=== PATIENT | male | born 1930 | race African-American/Black ===

== ENCOUNTER 2017-01-14 16:28 | Inpatient (IN) | payer MEDICARE, OTHER ==
[~2017-01-14] VITALS: Ht 160 cm; Wt 69.5 kg
--- NOTE | 2017-01-14 16:58 | ED.ADGEN ---
Adult General Chief Complaint Chief Complaint: FEVER HPI HPI Patient is a 86 year old man, history of a hemicolectomy an ostomy in place, urostomy, hypertension, who presents the emergency department with a report of fever and generalized weakness. Per report of family at bedside, patient was discharged from [facility] on Sunday after a recent hospitalization for "infection". Patient reportedly was expressing a urinary tract infection, and some other type of infection. He is not currently on antibiotics so is treated with antibiotics during his hospital stay. His primary care provider is Dr. Castellano. Patient was evaluated by physical therapy at home today, when they arrived and noted the patient had a fever of 100.4 orally, and was tachycardic. They contacted the patient's primary care provider, and the patient was instructed to come to the emergency department for evaluation. Per report of patient's family, patient has had decreased appetite today, but no vomiting. Patient is denying any nausea, any diarrhea, any focal weakness, numbness, tingling, headache, shortness of breath, cough. Denies any abdominal pain, denies any rashes or swelling extremities. No recent sick contacts or exposures. Patient has been compliant with his medications. Temperature in the emergency department is 99.3 orally, patient has not received any medications prior to arrival in the ED for fever. He denies any complaints. Review of Systems Review of Systems Constitutional: Fever, no chills. Eyes: Denies change in visual acuity. [] HENT: Denies nasal congestion or sore throat. [] Respiratory: Chronic nonproductive cough. [] Cardiovascular: Denies chest pain or edema. [] GI: Denies abdominal pain, nausea, vomiting, bloody stools or diarrhea. [] : Denies dysuria. [] Musculoskeletal: Denies back pain or joint pain. [] Integument: Denies rash. [] Neurologic: Denies headache, focal weakness or sensory changes. [] Endocrine: Denies polyuria or polydipsia. [] Lymphatic: Denies swollen glands. [] Psychiatric: Denies depression or anxiety. [] Current Medications Current Medications Current Medications Medications (Trade) Dose Ordered Sig/Ash Start Time Stop Time Status Last Admin Dose Admin Acetaminophen (Tylenol) 1,000 mg 1X ONCE 01/14/17 17:00 01/14/17 17:01 DC 01/14/17 17:21 1,000 MG Sodium Chloride 1,000 ml @ 100 mls/hr Q10H 01/14/17 17:00 01/15/17 02:59 Allergies Allergies Allergies Coded Allergies Type Severity Reaction Last Updated Verified No Known Drug Allergies 01/14/17 No Physical Exam Physical Exam Constitutional: Well developed, well nourished, no acute distress, non-toxic appearance. [] HENT: Normocephalic, atraumatic, bilateral external ears normal, oropharynx moist, no oral exudates, nose normal. [] Eyes: PERRLA, EOMI, conjunctiva normal, no discharge. [] Neck: Normal range of motion, no tenderness, supple, no stridor. [] Cardiovascular:Heart rate regular rhythm, no murmur, S1, S2, no rubs or gallops. Soft heart sounds. Mildly tachycardic. [] Lungs & Thorax: Bilateral breath sounds clear to auscultation, no wheezing, rhonchi, rales. No chest or crepitus or tenderness. [] Abdomen: Bowel sounds normal, soft, no tenderness, patient with ostomy in place , with moderate amount of brown liquid stool, urostomy in place, with yellow urine, no hematuria. No masses, no pulsatile masses. [] Skin: Warm, dry, no erythema, no rash. [] Back: No tenderness, no CVA tenderness. [] Extremities: No tenderness, no cyanosis, no clubbing, ROM intact, no edema. Negative Homans sign. [] Neurologic: Alert and oriented X 3, normal motor function, normal sensory function, no focal deficits noted. [] Psychologic: Affect normal, judgement normal, mood normal. [] Current Patient Data Vital Signs Vital Signs Date Time Temp Pulse Resp B/P (MAP) Pulse Ox O2 Delivery O2 Flow Rate FiO2 01/14/17 17:30 94 20 158/76 (103) 99 Room Air 01/14/17 16:49 99.3 99.3 Lab Values Laboratory Tests Test 01/14/17 17:03 01/14/17 17:22 White Blood Count 12.5 x10^3/uL (4.0-11.0) H Red Blood Count 2.80 x10^6/uL (4.30-5.70) L Hemoglobin 8.7 g/dL (13.0-17.5) L Hematocrit 27.0 % (39.0-53.0) L Mean Corpuscular Volume 96 fL (79-100) Mean Corpuscular Hemoglobin 31 pg (25-35) Mean Corpuscular Hemoglobin Concent 32 g/dL (31-37) Red Cell Distribution Width 15.9 % (11.5-14.5) H Platelet Count 349 x10^3/uL (140-400) Neutrophils (%) (Auto) 66 % (31-73) Lymphocytes (%) (Auto) 11 % (24-48) L Monocytes (%) (Auto) 22 % (0-9) H Eosinophils (%) (Auto) 1 % (0-3) Basophils (%) (Auto) 1 % (0-3) Neutrophils # (Auto) 8.3 x10^3uL (1.8-7.7) H Lymphocytes # (Auto) 1.4 x10^3/uL (1.0-4.8) Monocytes # (Auto) 2.7 x10^3/uL (0.0-1.1) H Eosinophils # (Auto) 0.1 x10^3/uL (0.0-0.7) Basophils # (Auto) 0.1 x10^3/uL (0.0-0.2) Segmented Neutrophils % 77 % (35-66) H Lymphocytes % 9 % (24-48) L Monocytes % 14 % (0-10) H Platelet Estimate Adequate (ADEQUATE) Prothrombin Time 14.6 SEC (11.7-14.0) H Prothrombin Time INR 1.2 (0.8-1.1) H PTT 42 SEC (24-38) H Sodium Level 138 mmol/L (136-145) Potassium Level 4.1 mmol/L (3.5-5.1) Chloride Level 100 mmol/L (98-107) Carbon Dioxide Level 28 mmol/L (21-32) Anion Gap 10 (6-14) Blood Urea Nitrogen 30 mg/dL (8-26) H Creatinine 1.6 mg/dL (0.7-1.3) H Estimated GFR (Cockcroft-Gault) 41.1 BUN/Creatinine Ratio 19 (6-20) Glucose Level 305 mg/dL (70-99) H Lactic Acid Level 2.7 mmol/L (0.4-2.0) H Calcium Level 9.6 mg/dL (8.5-10.1) Total Bilirubin 0.3 mg/dL (0.2-1.0) Aspartate Amino Transferase (AST) 22 U/L (15-37) Alanine Aminotransferase (ALT) 27 U/L (16-63) Alkaline Phosphatase 147 U/L (46-116) H Troponin I Quantitative < 0.017 ng/mL (0.000-0.055) KV-Wzv-K-Type Natriuretic Peptide 1121 pg/mL (0-449) H Total Protein 8.1 g/dL (6.4-8.2) Albumin 2.7 g/dL (3.4-5.0) L Albumin/Globulin Ratio 0.5 (1.0-1.7) L Urine Collection Type Unknown Urine Color Yellow Urine Clarity Cloudy Urine pH 6.0 Urine Specific [place] 1.010 Urine Protein 30 mg/dL (NEG-TRACE) Urine Glucose (UA) Negative mg/dL (NEG) Urine Ketones (Stick) Negative mg/dL (NEG) Urine Blood Small (NEG) Urine Nitrite Positive (NEG) Urine Bilirubin Negative (NEG) Urine Urobilinogen Dipstick 0.2 mg/dL (0.2 mg/dL) Urine Leukocyte Esterase Large (NEG) Urine RBC 6-10 /HPF (0-2) Urine WBC Tntc /HPF (0-4) Urine Squamous Epithelial Cells Few /LPF Urine Bacteria Many /HPF (0-FEW) Urine Hyaline Casts Few /HPF Urine Mucus Slight /LPF Laboratory Tests 01/14/17 17:03 Laboratory Tests 01/14/17 17:03 EKG EKG EC: Sinus tachycardia, heart rate 105 beats minute, upright axis, QTC of 445, [place] 142, QRS is 72, mild baseline artifact noted, contour normality is noted in the anterior leads, but no ST elevations or depressions, abnormal ECG, does not meet STEMI criteria. As interpreted by me. [] Radiology/Procedures Radiology/Procedures Chest x-ray: One view: Normal cardiopulmonary silhouette, calcification of the aorta, no infiltrates, no effusions, no soft tissue or bony abnormalities identified. As interpreted by me. [] Course & Med Decision Making Course & Med Decision Making Pertinent Labs and Imaging studies reviewed. (See chart for details) Patient denying complaints in the emergency department, noted be tachycardic, in the low 100s, blood pressure is within normal limits, oxygen saturation is in the mid upper 90s rest her rate is 18-20 and unlabored. Oral temperature is 99.3 as stated. Laboratory studies obtained, reveal a lactic acidosis at 2.7, with a leukocytosis, 12.5, with a left shift, urinalysis is positive for nitrates, too numerous to count WBCs, many bacteria. This was a specimen taken from the patient's urostomy. As patient has no abdominal pain, or other complaints, negative chest x-ray, we will treat with IV fluids, and broad- spectrum antibiotics to cover patient's urine, Zosyn and vancomycin initiated in the emergency department. Patient continues to rest comfortably. Findings as above discussed with Dr. Whaley, the patient's primary care provider, patient accepted to his service as a full admission to the medical telemetry floor for continued close monitoring and medical treatment, bridge orders entered per discussion. Dragon Disclaimer Dragon Disclaimer This electronic medical record was generated, in whole or in part, using a voice recognition dictation system. Departure Impression: Primary Impression: Pyelonephritis Disposition: ADMITTED INPATIENT Admitting Physician: Javier Whaley Condition: IMPROVED SANIA BARNETT DO Jan 14, 2017 16:58
[2017-01-14] MEDS ORDERED: ACETAMINOPHEN 500 MG TABLET PO ONE (17:00)
[2017-01-14 17:11] LABS: BASO # 0.1 x10^3/uL (0.0-0.2); BASO % 1 % (0-3); EOS % 1 % (0-3); HEMOGLOBIN 8.7 g/dL (13.0-17.5); LYMPH # 1.4 x10^3/uL (1.0-4.8); LYMPH % 11 % (24-48); MEAN CORPUSCULAR HEMOGLOBIN 31 pg (25-35); MEAN CORPUSCULAR HGB CONC 32 g/dL (31-37); MEAN CORPUSCULAR VOLUME 96 fL (79-100); MONO % 22 % (0-9); NEUT % 66 % (31-73); PLATELET COUNT 349 x10^3/uL (140-400); RED CELL DISTRIBUTION WIDTH 15.9 % (11.5-14.5); WHITE BLOOD COUNT 12.5 x10^3/uL (4.0-11.0)
[2017-01-14 17:20] LABS: INR 1.2 (0.8-1.1); PROTHROMBIN TIME PATIENT 14.6 SEC (11.7-14.0)
[2017-01-14] MEDS: IV NORMAL SALINE 1000ML BAG 1,000 ML IV SCH ×2 (17:20→20:08)
[2017-01-14 17:23] LABS: CALCIUM 9.6 mg/dL (8.5-10.1); CREATININE 1.6 mg/dL (0.7-1.3); GFR 41.1; POTASSIUM 4.1 mmol/L (3.5-5.1)
[2017-01-14 17:29] LABS: BILIRUBIN,URINE NEGATIVE (NEG); GLUCOSE,URINE NEGATIVE (NEG); NITRITE,URINE POSITIVE (NEG); PROTEIN,URINE 30 mg/dL (NEG-TRACE); UROBILINOGEN,URINE 0.2 mg/dL (0.2 mg/dL)
[2017-01-14 17:35] LABS: BACTERIA,URINE MANY /HPF (0-FEW); SQUAMOUS EPITHELIAL CELL,UR FEW /LPF; WBC,URINE TNTC /HPF (0-4)
[2017-01-14 17:38] LABS: ALBUMIN 2.7 g/dL (3.4-5.0); ALBUMIN/GLOBULIN RATIO 0.5 (1.0-1.7); TOTAL BILIRUBIN 0.3 mg/dL (0.2-1.0); TOTAL PROTEIN 8.1 g/dL (6.4-8.2)
[2017-01-14 17:43] LABS: PLT ESTIMATE ADEQUATE (ADEQUATE)
[2017-01-14] MEDS ORDERED: PIP/TAZO PER PHARMACY MC PRN (17:45)
[2017-01-14] MEDS ORDERED: DORZ10DR3 EACHEYE (17:48)
[2017-01-14] MEDS ORDERED: OMEP20CA9 PO (17:48)
[2017-01-14] MEDS ORDERED: MULT1TAB52 PO (17:48)
[2017-01-14] MEDS ORDERED: DILT120C80 PO (17:48)
[2017-01-14] MEDS ORDERED: METF500T4 PO (17:48)
[2017-01-14] MEDS ORDERED: CRESTOR10 MG PO (17:48)
[2017-01-14] MEDS ORDERED: BRIM5DRO3 EACHEYE (17:48)
[2017-01-14] MEDS ORDERED: CHOL10003 PO (17:48)
[2017-01-14] MEDS ORDERED: HYDR25TA9 PO (17:48)
[2017-01-14] MEDS ORDERED: GLIM2TAB2 PO (17:48)
[2017-01-14] MEDS ORDERED: THIA100T43 PO (17:48)
[2017-01-14] MEDS ORDERED: PARO10TA57 PO (17:48)
[2017-01-14] MEDS ORDERED: LATA2.5D3 OP (17:48)
[2017-01-14] MEDS ORDERED: LISI-334 PO (17:48)
[2017-01-14] MEDS ORDERED: IV NORMAL SALINE 1000ML BAG 1,000 ML IV ONE (18:00)
[2017-01-14] MEDS: VANCOMYCIN 1.5 GM in IV NORMAL SALINE 500ML BAG 500 ML IV ONE ×2 (18:00→20:09)
[2017-01-14] MEDS ORDERED: PIPERACILLIN/TAZOBACTAM 3.375 GM in IV NORMAL SALINE 50ML 50 ML IV ONE (18:00)
[2017-01-14] MEDS ORDERED: ACETAMINOPHEN 325 MG TABLET. PO PRN (18:15)
[2017-01-14] MEDS ORDERED: ONDANSETRON PF 4 MG/2 ML VIAL. IV PRN (18:15)
[2017-01-14] MEDS ORDERED: DEXTROSE 50% 25 GM / 50ML DISP.SYRIN. IV PRN (18:15)
[2017-01-14 19:42] VITALS: BP 155/78
[2017-01-14] MEDS: VANCOMYCIN PER PHARMACY MC PRN (20:13)
[2017-01-14 22:49] VITALS: BP 148/70
[2017-01-15] MEDS: PIPERACILLIN/TAZOBACTAM 2.25 GM in IV NORMAL SALINE 50ML 50 ML IV SCH ×4 (00:20→17:24)
[2017-01-15 03:06] VITALS: BP 178/77
[2017-01-15 04:33] LABS: BASO # 0.1 x10^3/uL (0.0-0.2); BASO % 1 % (0-3); EOS % 2 % (0-3); HEMATOCRIT 24.9 % (39.0-53.0); HEMOGLOBIN 8.1 g/dL (13.0-17.5); LYMPH # 1.4 x10^3/uL (1.0-4.8); LYMPH % 13 % (24-48); MEAN CORPUSCULAR HEMOGLOBIN 31 pg (25-35); MEAN CORPUSCULAR HGB CONC 33 g/dL (31-37); MEAN CORPUSCULAR VOLUME 96 fL (79-100); MONO % 23 % (0-9); NEUT % 61 % (31-73); PLATELET COUNT 282 x10^3/uL (140-400); RED CELL DISTRIBUTION WIDTH 15.6 % (11.5-14.5); WHITE BLOOD COUNT 10.3 x10^3/uL (4.0-11.0)
[2017-01-15 04:45] LABS: CALCIUM 8.7 mg/dL (8.5-10.1); CREATININE 1.2 mg/dL (0.7-1.3); GFR 69.3; POTASSIUM 3.6 mmol/L (3.5-5.1)
--- NOTE | 2017-01-15 05:07 | ACF ---
Admission Forms Criteria PYELONEPHRITIS, ACUTE Clinical Indications for Admission to Inpatient Care ([place]/check or initial the applicable condition/criteria) Admission is indicated for 1 or more of the following 1)(2)(3)(4)(5)(6) [ ]I. Failure of outpatient treatment [ ]II. beyond 24 weeks' gestation(8)(9)(10) [ ]III. Immunocompromised state (eg, AIDS, sickle cell disease, chronic systemic corticosteroid use) [ ]. Known renal or urologic abnormalities (eg, structural abnormalities, renal calculi, urinary stent, previous urologic surgery) [ ]V. Condition that requires drainage procedure, including 1 or more of the following: [ ]a) Urinary obstruction(11) [ ]b) Renal or perinephric abscess [ ]c) Emphysematous pyelonephritis(12) [ ]d) Pyelitis [ ]e) Pyonephrosis [X]Vl. Inpatient admission required[A] rather than observation care (see Pyelonephritis, Acute: Observation Care guideline as appropriate) because of 1 or more of the following(13 )(14)(15): [ ]a) Hemodynamic instability(16) [ ]b) Altered mental status that is severe or persistent [X]c) High fever or infection requiring inpatient admission as indicated by 1 or more of the following(17)(18): [X]1) Documented bacteremia [ ]2) Temperature greater than 104.9 degrees F (40.5 degrees C) (oral) [ ]3) Temperature greater than 103.1 degrees F (39.5 degrees C) (oral) or rectal temperature less than 95 degrees F (35 degrees C) (eg, thought to be due to infection) that does not respond to all emergency treatment measures(19)(20 [ ]d) Acute renal failure [ ]e) Need for IV hydration support (eg, inability to maintain oral hydration ) despite outpatient and observation care treatment [ ]f) Other condition, treatment, or monitoring requiring inpatient admission The original [facility] [employer] content created by Alex Kaiser has been revised. The portions of the content which have been revised are identified through the use of italic text, and Alex Kaiser has neither reviewed nor approved the modified material. All other unmodified content is copyright [employer] include [email or web address] [email or web address]. Please see references footnote in the original [facility] edition 2015 Admission Criteria Met?: Yes DARIEN BLACKWOOD Jan 15, 2017 05:07
--- NOTE | 2017-01-15 06:29 | EKG ---
[facility] [address] [place] [address] Test Date: 2017-01-14 Test Time: 16:41:24 Pat Name: TA MEDINA Department: Room: Gender: M [place]: : 1930 Requested By: SANIA BARNETT Order Number: [id number] Reading MD: Measurements Intervals [place] Rate: 105 P: 39 RI: 142 QRS: 38 QRSD: 72 T: 24 QT: 334 QTc: 445 Interpretive Statements SINUS TACHYCARDIA QRS(T) CONTOUR ABNORMALITY CONSIDER ANTEROSEPTAL MYOCARDIAL DAMAGE ST & T ABNORMALITY, CONSIDER ANTERIOR ISCHEMIA OR LEFT VENTRICULAR STRAIN ABNORMAL ECG RI6.01 No previous ECG available for comparison
[2017-01-15 07:00] VITALS: BP 140/74
--- NOTE | 2017-01-15 07:36 | RAD ---
Indication: Weakness. Time of exam 1710 hours. Correlation is made with prior study from 04/03/2011. FINDINGS: The heart size is normal. The lungs are clear. No pleural effusion or pneumothorax is identified. The pulmonary vascularity is normal. IMPRESSION: No acute abnormality detected.
[2017-01-15] MEDS: INSULIN ASPART 300 UNITS/3 ML INSULN.PEN SQ SCH ×3 (09:44→17:28)
[2017-01-15 11:00] VITALS: BP 154/74
[2017-01-15] MEDS: THIAMINE 100 MG TABLET. PO SCH (13:21)
[2017-01-15] MEDS: MULTIVITAMIN with MINERAL TABLET. PO SCH (13:22)
[2017-01-15] MEDS: GLIMEPIRIDE 2 MG TABLET. PO SCH (13:22)
[2017-01-15] MEDS: ENOXAPARIN 40 MG/0.4 ML SYRINGE. SQ SCH (13:23)
[2017-01-15] MEDS: PARoxetine 10 MG TABLET PO SCH (13:23)
[2017-01-15] MEDS: LISINOPRIL 20 MG TABLET PO SCH (13:23)
[2017-01-15] MEDS: hydroCHLOROthiazide 25 MG TABLET PO SCH (13:23)
[2017-01-15] MEDS: CHOLECALCIFEROL (VITAMIN D3) 1,000 UNIT TABLET PO SCH (13:24)
[2017-01-15] MEDS: VANCOMYCIN PER PHARMACY MC PRN (14:56)
[2017-01-15 15:00] VITALS: BP 153/69
[2017-01-15] MEDS: PANTOPRAZOLE 40 MG TABLET.DR. PO SCH (17:23)
[2017-01-15] MEDS: metFORMIN 500 MG TABLET PO SCH (17:24)
[2017-01-15 19:00] VITALS: BP 143/63
[2017-01-15] MEDS ORDERED: VANCOMYCIN 1 GM in IV NORMAL SALINE 250ML 250 ML IV SCH (20:00)
[2017-01-15] MEDS: LATANOPROST 0.005% OPHTH SOLUTION 2.5ML BOTTLE. OU SCH (20:28)
[2017-01-15] MEDS: BRIMONIDINE 0.2% OPHTH SOLUTION 5ML BOTTLE. OU SCH (20:28)
[2017-01-15] MEDS: DORZOLAMIDE 2% OPHTH SOLUTION 10ML BOTTLE. OU SCH (20:28)
[2017-01-15] MEDS: ATORVASTATIN CALCIUM 40 MG TABLET. PO SCH (20:29)
[2017-01-15 23:00] VITALS: BP 124/62
[2017-01-16] MEDS: PIPERACILLIN/TAZOBACTAM 2.25 GM in IV NORMAL SALINE 50ML 50 ML IV SCH ×5 (00:26→23:59)
[2017-01-16 03:00] VITALS: BP 151/67
--- NOTE | 2017-01-16 05:52 | HP ---
ADMIT DATE: 01/14/2017 CHIEF COMPLAINT: Fever and weakness. HISTORY OF PRESENT ILLNESS AND HOSPITAL COURSE: This patient is an 86-year-old -[place] male who is recently transferred from shelter to home after extended hospital stay for dehydration, weight loss and sepsis. He underwent shelter/rehab care and apparently was discharged home in the care of his daughter, who commuted from [place] to care for him and live with him. The patient states that he is living alone and this cannot be verified at this time. He was directed to go to the Emergency Room when home health was evaluating the patient and discovered that the patient was having a fever of 100.3, has become increasingly weak and showed evidence of tachycardia and dehydration again. This was less than a week after discharge from shelter. The patient came to the Emergency Room and was found to have a slightly elevated white count with positive nitrites in his urine and large leukocytes as well as very high blood sugar of 300 and evidence of acute on chronic renal failure. Due to the constellation of symptoms, he was admitted for IV fluids, IV antibiotics, Infectious Disease consultation and supportive care. PAST MEDICAL HISTORY: Significant for: 1. Recent hospitalization for significant weight loss, dehydration and UTI with sepsis. 2. 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 3. 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 4. Type 2 diabetes. 5. Hypertension. 6. Chronic kidney disease stage 3. 7. Hyperlipidemia. 8. Glaucoma. PAST SURGICAL HISTORY: Significant for cystoscopy, retrograde pyelogram, low back surgery, partial colectomy, ileal conduit, prostatectomy. FAMILY HISTORY: His mother with complications of stroke. Father with complications of cancer. SOCIAL HISTORY: The patient has never smoked. He was apparently supposed to live with daughter, but this is not verified at this time because the patient has failed living at home alone at this time, the patient was ____ in 08/2016. ALLERGIES: THE PATIENT EXHIBITS ALLERGIES TO VYTORIN CAUSING MUSCLE ACHES. REVIEW OF SYSTEMS: Significant for lethargy, weakness and fatigue, recent fever. PHYSICAL EXAMINATION: GENERAL: This is a well-nourished, well-developed -[place] male who is lying in bed, alert, but sluggish and slow to speak. HEENT: Otherwise benign. NECK: Supple. CARDIAC: Regular rate and rhythm. LUNGS: Clear. ABDOMEN: Soft without tenderness. EXTREMITIES: Showed 2+ pulses without significant edema. NEUROLOGIC: Showed no unilateral findings. ASSESSMENT: 1. Sepsis. 2. Urinary tract infection. 3. Acute on chronic renal failure. 4. Anemia. 5. Longstanding ileostomy and colostomy. PLAN: To proceed with IV antibiotics, IV fluids, consult Infectious Disease and provide supportive care. We will also consult social work to assess home status and support system. KRISTINA LEIGH MD DR: STEFANIA/meron JOB#: [id number] / [id number]
[2017-01-16 07:00] VITALS: BP 153/68
--- NOTE | 2017-01-16 08:26 | PDOC ---
Infectious Disease Note ROS ROS GEN: Denies fevers, chills, sweats HEENT: Denies blurred vision, sore throat CV: Denies chest pain RESP: Denies shortness of air, cough GI: Denies n/v/d NEURO: Denies confusion, dizziness MSK: Denies weakness, joint pain/swelling Vital Sign Vital Signs Vital Signs Date Time Temp Pulse Resp B/P (MAP) Pulse Ox O2 Delivery O2 Flow Rate FiO2 01/16/17 07:00 98.8 76 20 153/68 (96) 99 Room Air 98.8 Physical Exam PHYSICAL EXAM GENERAL: NAD, Alert HEENT: PERRL, OC/OP NECK: Supple, no JVD, no LN LUNGS: Clear HEART: S1S2, no gallop, no murmur ABD: Soft, NT, no organomegaly, no rebound EXT: No edema, no cyanosis GLASS CYLINDER FLANGER: Alert, oriented x 3, no focal neurologic deficit SKIN: No rash IV: ok Labs Lab Laboratory Tests Test 01/15/17 11:20 01/15/17 16:47 01/15/17 20:35 01/16/17 07:29 Glucose (Fingerstick) 180 mg/dL (70-99) 342 mg/dL (70-99) 90 mg/dL (70-99) 154 mg/dL (70-99) Objective Assessment Leukocytosis GNR in urine but has urostomy ? FORTUNATO MRSA + Plan Plan of Care D/c Vanc Cont Zosyn adust to po soon f/U labs and cult notes reviewed Thank you Dictation system down # SANDI WORTHINGTON MD Jan 16, 2017 08:26
[2017-01-16] MEDS: THIAMINE 100 MG TABLET. PO SCH (08:33)
[2017-01-16] MEDS: LISINOPRIL 20 MG TABLET PO SCH (08:34)
[2017-01-16] MEDS: hydroCHLOROthiazide 25 MG TABLET PO SCH (08:34)
[2017-01-16] MEDS: MULTIVITAMIN with MINERAL TABLET. PO SCH (08:35)
[2017-01-16] MEDS: BRIMONIDINE 0.2% OPHTH SOLUTION 5ML BOTTLE. OU SCH ×2 (08:35→21:16)
[2017-01-16] MEDS: GLIMEPIRIDE 2 MG TABLET. PO SCH (08:35)
[2017-01-16] MEDS: PARoxetine 10 MG TABLET PO SCH (08:35)
[2017-01-16] MEDS: metFORMIN 500 MG TABLET PO SCH ×2 (08:35→17:13)
[2017-01-16] MEDS: CHOLECALCIFEROL (VITAMIN D3) 1,000 UNIT TABLET PO SCH (08:35)
[2017-01-16] MEDS: INSULIN ASPART 300 UNITS/3 ML INSULN.PEN SQ SCH ×3 (08:42→17:00)
[2017-01-16] MEDS: DORZOLAMIDE 2% OPHTH SOLUTION 10ML BOTTLE. OU SCH ×2 (10:05→21:16)
[2017-01-16] MEDS: PANTOPRAZOLE 40 MG TABLET.DR. PO SCH (10:05)
[2017-01-16 10:37] LABS: BASO # 0.1 x10^3/uL (0.0-0.2); BASO % 1 % (0-3); EOS % 2 % (0-3); HEMATOCRIT 26.1 % (39.0-53.0); HEMOGLOBIN 8.6 g/dL (13.0-17.5); LYMPH % 10 % (24-48); MEAN CORPUSCULAR HEMOGLOBIN 32 pg (25-35); MEAN CORPUSCULAR HGB CONC 33 g/dL (31-37); MEAN CORPUSCULAR VOLUME 95 fL (79-100); MONO % 17 % (0-9); NEUT % 71 % (31-73); PLATELET COUNT 310 x10^3/uL (140-400); RED BLOOD COUNT 2.74 x10^6/uL (4.30-5.70); RED CELL DISTRIBUTION WIDTH 15.6 % (11.5-14.5); WHITE BLOOD COUNT 9.9 x10^3/uL (4.0-11.0)
[2017-01-16 10:57] LABS: ALBUMIN 2.3 g/dL (3.4-5.0); ALBUMIN/GLOBULIN RATIO 0.5 (1.0-1.7); CALCIUM 8.7 mg/dL (8.5-10.1); CREATININE 1.4 mg/dL (0.7-1.3); POTASSIUM 3.6 mmol/L (3.5-5.1); TOTAL BILIRUBIN 0.2 mg/dL (0.2-1.0); TOTAL PROTEIN 7.1 g/dL (6.4-8.2)
[2017-01-16 11:00] VITALS: BP 142/63
[2017-01-16] MEDS: ENOXAPARIN 40 MG/0.4 ML SYRINGE. SQ SCH (12:17)
--- NOTE | 2017-01-16 13:36 | PDOC ---
PROGRESS NOTES Subjective Subjective Patient feeling better. PT and OT again recommending [facility]. Patient's home situation being reviewed by social work. Plan 1 more midnight prior to discharge to [facility]. MRSA noted in urine. Patient to be switched to Zosyn by infectious disease. Objective Objective Vital Signs Date Time Temp Pulse Resp B/P (MAP) Pulse Ox O2 Delivery O2 Flow Rate FiO2 01/16/17 11:00 98.6 78 16 142/63 (89) 99 Room Air 98.6 Intake and Output 01/16/17 07:00 Intake Total 665 ml Output Total 1175 ml Balance -510 ml Intake Oral 295 ml IV Total 370 ml Output Urine Total 100 ml Urine/Stool Mix 450 ml Drainage Total 625 ml # Bowel Movements 1 Physical Exam Abdomen: Normal bowel sounds Heart: Regular rate Extremities: No clubbing General: Alert Lungs: Clear to auscultation Neuro: Other (slow speech) Assessment Assessment 1. Sepsis. 2. Urinary tract infection- MRSA 3. Acute on chronic renal failure. 4. Anemia. 5. Longstanding ileostomy and colostomy. Plan Plan of Care Continue antibiotics per infectious disease. Transfer to skilled in a.m. if stable Considered assisted living or [facility] placement if no consistent home care is available. Comment Review of Relevant I have reviewed the following items cristiano (where applicable) has been applied. Labs Laboratory Tests Test 01/14/17 17:03 01/14/17 17:22 01/14/17 20:21 01/14/17 21:00 White Blood Count 12.5 x10^3/uL (4.0-11.0) Red Blood Count 2.80 x10^6/uL (4.30-5.70) Hemoglobin 8.7 g/dL (13.0-17.5) Hematocrit 27.0 % (39.0-53.0) Mean Corpuscular Volume 96 fL (79-100) Mean Corpuscular Hemoglobin 31 pg (25-35) Mean Corpuscular Hemoglobin Concent 32 g/dL (31-37) Red Cell Distribution Width 15.9 % (11.5-14.5) Platelet Count 349 x10^3/uL (140-400) Neutrophils (%) (Auto) 66 % (31-73) Lymphocytes (%) (Auto) 11 % (24-48) Monocytes (%) (Auto) 22 % (0-9) Eosinophils (%) (Auto) 1 % (0-3) Basophils (%) (Auto) 1 % (0-3) Neutrophils # (Auto) 8.3 x10^3uL (1.8-7.7) Lymphocytes # (Auto) 1.4 x10^3/uL (1.0-4.8) Monocytes # (Auto) 2.7 x10^3/uL (0.0-1.1) Eosinophils # (Auto) 0.1 x10^3/uL (0.0-0.7) Basophils # (Auto) 0.1 x10^3/uL (0.0-0.2) Segmented Neutrophils % 77 % (35-66) Lymphocytes % 9 % (24-48) Monocytes % 14 % (0-10) Platelet Estimate Adequate (ADEQUATE) Prothrombin Time 14.6 SEC (11.7-14.0) Prothromb Time International Ratio 1.2 (0.8-1.1) Activated Partial Thromboplast Time 42 SEC (24-38) Sodium Level 138 mmol/L (136-145) Potassium Level 4.1 mmol/L (3.5-5.1) Chloride Level 100 mmol/L (98-107) Carbon Dioxide Level 28 mmol/L (21-32) Anion Gap 10 (6-14) Blood Urea Nitrogen 30 mg/dL (8-26) Creatinine 1.6 mg/dL (0.7-1.3) Estimated GFR (Cockcroft-Gault) 41.1 BUN/Creatinine Ratio 19 (6-20) Glucose Level 305 mg/dL (70-99) Lactic Acid Level 2.7 mmol/L (0.4-2.0) 1.2 mmol/L (0.4-2.0) Calcium Level 9.6 mg/dL (8.5-10.1) Total Bilirubin 0.3 mg/dL (0.2-1.0) Aspartate Amino Transf (AST/SGOT) 22 U/L (15-37) Alanine Aminotransferase (ALT/SGPT) 27 U/L (16-63) Alkaline Phosphatase 147 U/L (46-116) Troponin I Quantitative < 0.017 ng/mL (0.000-0.055) MT-Mzv-R-Type Natriuretic Peptide 1121 pg/mL (0-449) Total Protein 8.1 g/dL (6.4-8.2) Albumin 2.7 g/dL (3.4-5.0) Albumin/Globulin Ratio 0.5 (1.0-1.7) Urine Collection Type Unknown Urine Color Yellow Urine Clarity Cloudy Urine pH 6.0 Urine Specific [place] 1.010 Urine Protein 30 mg/dL (NEG-TRACE) Urine Glucose (UA) Negative mg/dL (NEG) Urine Ketones (Stick) Negative mg/dL (NEG) Urine Blood Small (NEG) Urine Nitrite Positive (NEG) Urine Bilirubin Negative (NEG) Urine Urobilinogen Dipstick 0.2 mg/dL (0.2 mg/dL) Urine Leukocyte Esterase Large (NEG) Urine RBC 6-10 /HPF (0-2) Urine WBC Tntc /HPF (0-4) Urine Squamous Epithelial Cells Few /LPF Urine Bacteria Many /HPF (0-FEW) Urine Hyaline Casts Few /HPF Urine Mucus Slight /LPF Glucose (Fingerstick) 164 mg/dL (70-99) Test 01/14/17 22:50 01/15/17 04:00 01/15/17 07:28 01/15/17 11:20 Nasal Screen MRSA (PCR) Positive (Negative) White Blood Count 10.3 x10^3/uL (4.0-11.0) Red Blood Count 2.60 x10^6/uL (4.30-5.70) Hemoglobin 8.1 g/dL (13.0-17.5) Hematocrit 24.9 % (39.0-53.0) Mean Corpuscular Volume 96 fL (79-100) Mean Corpuscular Hemoglobin 31 pg (25-35) Mean Corpuscular Hemoglobin Concent 33 g/dL (31-37) Red Cell Distribution Width 15.6 % (11.5-14.5) Platelet Count 282 x10^3/uL (140-400) Neutrophils (%) (Auto) 61 % (31-73) Lymphocytes (%) (Auto) 13 % (24-48) Monocytes (%) (Auto) 23 % (0-9) Eosinophils (%) (Auto) 2 % (0-3) Basophils (%) (Auto) 1 % (0-3) Neutrophils # (Auto) 6.3 x10^3uL (1.8-7.7) Lymphocytes # (Auto) 1.4 x10^3/uL (1.0-4.8) Monocytes # (Auto) 2.4 x10^3/uL (0.0-1.1) Eosinophils # (Auto) 0.2 x10^3/uL (0.0-0.7) Basophils # (Auto) 0.1 x10^3/uL (0.0-0.2) Sodium Level 139 mmol/L (136-145) Potassium Level 3.6 mmol/L (3.5-5.1) Chloride Level 106 mmol/L (98-107) Carbon Dioxide Level 24 mmol/L (21-32) Anion Gap 9 (6-14) Blood Urea Nitrogen 23 mg/dL (8-26) Creatinine 1.2 mg/dL (0.7-1.3) Estimated GFR (Cockcroft-Gault) 69.3 Glucose Level 153 mg/dL (70-99) Calcium Level 8.7 mg/dL (8.5-10.1) Glucose (Fingerstick) 201 mg/dL (70-99) 180 mg/dL (70-99) Test 01/15/17 16:47 01/15/17 20:35 01/16/17 07:29 01/16/17 10:00 Glucose (Fingerstick) 342 mg/dL (70-99) 90 mg/dL (70-99) 154 mg/dL (70-99) White Blood Count 9.9 x10^3/uL (4.0-11.0) Red Blood Count 2.74 x10^6/uL (4.30-5.70) Hemoglobin 8.6 g/dL (13.0-17.5) Hematocrit 26.1 % (39.0-53.0) Mean Corpuscular Volume 95 fL (79-100) Mean Corpuscular Hemoglobin 32 pg (25-35) Mean Corpuscular Hemoglobin Concent 33 g/dL (31-37) Red Cell Distribution Width 15.6 % (11.5-14.5) Platelet Count 310 x10^3/uL (140-400) Neutrophils (%) (Auto) 71 % (31-73) Lymphocytes (%) (Auto) 10 % (24-48) Monocytes (%) (Auto) 17 % (0-9) Eosinophils (%) (Auto) 2 % (0-3) Basophils (%) (Auto) 1 % (0-3) Neutrophils # (Auto) 7.0 x10^3uL (1.8-7.7) Lymphocytes # (Auto) 1.0 x10^3/uL (1.0-4.8) Monocytes # (Auto) 1.7 x10^3/uL (0.0-1.1) Eosinophils # (Auto) 0.2 x10^3/uL (0.0-0.7) Basophils # (Auto) 0.1 x10^3/uL (0.0-0.2) Sodium Level 141 mmol/L (136-145) Potassium Level 3.6 mmol/L (3.5-5.1) Chloride Level 107 mmol/L (98-107) Carbon Dioxide Level 24 mmol/L (21-32) Anion Gap 10 (6-14) Blood Urea Nitrogen 19 mg/dL (8-26) Creatinine 1.4 mg/dL (0.7-1.3) Estimated GFR (Cockcroft-Gault) 58.0 BUN/Creatinine Ratio 14 (6-20) Glucose Level 219 mg/dL (70-99) Calcium Level 8.7 mg/dL (8.5-10.1) Total Bilirubin 0.2 mg/dL (0.2-1.0) Aspartate Amino Transf (AST/SGOT) 16 U/L (15-37) Alanine Aminotransferase (ALT/SGPT) 19 U/L (16-63) Alkaline Phosphatase 110 U/L (46-116) Total Protein 7.1 g/dL (6.4-8.2) Albumin 2.3 g/dL (3.4-5.0) Albumin/Globulin Ratio 0.5 (1.0-1.7) Test 01/16/17 11:15 Glucose (Fingerstick) 227 mg/dL (70-99) Laboratory Tests Test 01/15/17 16:47 01/15/17 20:35 01/16/17 07:29 01/16/17 10:00 Glucose (Fingerstick) 342 mg/dL (70-99) 90 mg/dL (70-99) 154 mg/dL (70-99) White Blood Count 9.9 x10^3/uL (4.0-11.0) Red Blood Count 2.74 x10^6/uL (4.30-5.70) Hemoglobin 8.6 g/dL (13.0-17.5) Hematocrit 26.1 % (39.0-53.0) Mean Corpuscular Volume 95 fL (79-100) Mean Corpuscular Hemoglobin 32 pg (25-35) Mean Corpuscular Hemoglobin Concent 33 g/dL (31-37) Red Cell Distribution Width 15.6 % (11.5-14.5) Platelet Count 310 x10^3/uL (140-400) Neutrophils (%) (Auto) 71 % (31-73) Lymphocytes (%) (Auto) 10 % (24-48) Monocytes (%) (Auto) 17 % (0-9) Eosinophils (%) (Auto) 2 % (0-3) Basophils (%) (Auto) 1 % (0-3) Neutrophils # (Auto) 7.0 x10^3uL (1.8-7.7) Lymphocytes # (Auto) 1.0 x10^3/uL (1.0-4.8) Monocytes # (Auto) 1.7 x10^3/uL (0.0-1.1) Eosinophils # (Auto) 0.2 x10^3/uL (0.0-0.7) Basophils # (Auto) 0.1 x10^3/uL (0.0-0.2) Sodium Level 141 mmol/L (136-145) Potassium Level 3.6 mmol/L (3.5-5.1) Chloride Level 107 mmol/L (98-107) Carbon Dioxide Level 24 mmol/L (21-32) Anion Gap 10 (6-14) Blood Urea Nitrogen 19 mg/dL (8-26) Creatinine 1.4 mg/dL (0.7-1.3) Estimated GFR (Cockcroft-Gault) 58.0 BUN/Creatinine Ratio 14 (6-20) Glucose Level 219 mg/dL (70-99) Calcium Level 8.7 mg/dL (8.5-10.1) Total Bilirubin 0.2 mg/dL (0.2-1.0) Aspartate Amino Transf (AST/SGOT) 16 U/L (15-37) Alanine Aminotransferase (ALT/SGPT) 19 U/L (16-63) Alkaline Phosphatase 110 U/L (46-116) Total Protein 7.1 g/dL (6.4-8.2) Albumin 2.3 g/dL (3.4-5.0) Albumin/Globulin Ratio 0.5 (1.0-1.7) Test 01/16/17 11:15 Glucose (Fingerstick) 227 mg/dL (70-99) Microbiology 01/14/17 Urine Culture - Final, Complete 01/14/17 Urine Culture Result 1 (HERBERT) - Final, Complete 01/14/17 Antimicrobic Susceptibility - Final, Complete Medications Current Medications Acetaminophen (Tylenol) 1,000 mg 1X ONCE PO Last administered on 01/14/17 17: 21; Start 01/14/17 at 17:00; Stop 01/14/17 at 17:01; Status DC Sodium Chloride 1,000 ml @ 100 mls/hr Q10H IV Last administered on 01/14/17 20:08; Start 01/14/17 at 17:00; Stop 01/15/17 at 02:59; Status DC Vancomycin HCl (Vanco Per Pharmacy) 1 each PRN DAILY PRN MC SEE COMMENTS Last administered on 01/15/17 14:56; Start 01/14/17 at 17:45; Stop 01/16/17 at 10:54 ; Status DC Piperacillin Sod/ Tazobactam Sod (Zosyn Per Pharmacy) 1 each PRN DAILY PRN MC SEE COMMENTS; Start 01/14/17 at 17:45 Sodium Chloride 1,000 ml @ 1,000 mls/hr 1X ONCE IV Last administered on 18:00; Start 01/14/17 at 18:00; Stop 01/14/17 at 18:59; Status DC Vancomycin HCl 1.5 gm/Sodium Chloride 500 ml @ 250 mls/hr 1X ONCE IV Last administered on 01/14/17 20:09; Start 01/14/17 at 18:00; Stop 01/14/17 at 19:59 ; Status DC Piperacillin Sod/ Tazobactam Sod 3.375 gm/Sodium Chloride 50 ml @ 100 mls/hr 1X ONCE IV Last administered on 01/14/17 18:06; Start 01/14/17 at 18:00; Stop 01/14/17 at 18:29; Status DC Piperacillin Sod/ Tazobactam Sod 2.25 gm/Sodium Chloride 50 ml @ 100 mls/hr Q6HRS IV Last administered on 01/16/17 12:16; Start 01/15/17 at 00:00 Ondansetron HCl (Zofran) 4 mg PRN Q8HRS PRN IV NAUSEA/VOMITING; Start 01/14/17 at 18:15; Stop 01/15/17 at 18:14; Status DC Acetaminophen (Tylenol) 650 mg PRN Q4HRS PRN PO FEVER; Start 01/14/17 at 18:15 ; Stop 01/15/17 at 18:14; Status DC Insulin Aspart (NovoLOG) 0-5 UNITS TIDWMEALS SQ Last administered on 01/16/17 12:23; Start 01/15/17 at 08:00 Dextrose (Dextrose 50%-Water Syringe) 12.5 gm PRN Q15MIN PRN IV SEE COMMENTS; Start 01/14/17 at 18:15 Vancomycin HCl 1 gm/Sodium Chloride 250 ml @ 250 mls/hr Q24H IV Last administered on 01/15/17 20:28; Start 01/15/17 at 20:00; Stop 01/16/17 at 10:54 ; Status DC Vancomycin HCl 1 each 1X ONCE MC ; Start 01/16/17 at 19:30; Stop 01/16/17 at 19 :30; Status DC Vitamin D (Vitamin D3) 1,000 unit DAILY PO Last administered on 01/16/17 08:35 ; Start 01/15/17 at 13:00 Diltiazem HCl (Cardizem 24hr Cd) 240 mg DAILY PO Last administered on 08:30; Start 01/15/17 at 13:00 Dorzolamide HCl (Trusopt) 1 drop BID OU Last administered on 01/16/17 10:05; Start 01/15/17 at 21:00 Glimepiride (Amaryl) 2 mg DAILY PO Last administered on 01/16/17 08:35; Start 01/15/17 at 13:00 Hydrochlorothiazide (Hydrodiuril) 25 mg DAILY PO Last administered on 08:34; Start 01/15/17 at 13:00 Latanoprost (Xalatan) 1 drop HS OU Last administered on 01/15/17 20:28; Start 01/15/17 at 21:00 Lisinopril (Prinivil) 20 mg DAILY PO Last administered on 01/16/17 08:34; Start 01/15/17 at 13:00 Metformin HCl (Glucophage) 500 mg BIDWMEALS PO Last administered on 01/16/17 08:35; Start 01/15/17 at 17:00 Paroxetine HCl (Paxil) 10 mg DAILY PO Last administered on 01/16/17 08:35; Start 01/15/17 at 13:00 Brimonidine Tartrate (Alphagan) 2 drop BID OU Last administered on 01/16/17 08 :35; Start 01/15/17 at 21:00 Multivitamins (Thera M Plus) 1 tab DAILY PO Last administered on 01/16/17 08: 35; Start 01/15/17 at 13:00 Pantoprazole Sodium (Protonix) 40 mg DAILYAC PO Last administered on 01/16/17 10:05; Start 01/15/17 at 16:30 Atorvastatin Calcium (Lipitor) 40 mg QHS PO Last administered on 01/15/17 20: 29; Start 01/15/17 at 21:00 Thiamine Mononitrate (Vitamin B-1) 100 mg DAILY PO Last administered on 08:33; Start 01/15/17 at 13:00 Enoxaparin Sodium (Lovenox 40mg Syringe) 40 mg Q24H SQ Last administered on 12:17; Start 01/15/17 at 13:00 Active Scripts Active Reported Dorzolamide Hcl 10 Ml Drops 1 Drop EACHEYE BID Crestor (Rosuvastatin Calcium) 10 Mg Tablet 10 Mg PO HS Latanoprost 2.5 Ml Drops 1 Drop OP HS Vitamin D3 (Cholecalciferol (Vitamin D3)) 1,000 Unit Tablet 1,000 Unit PO DAILY B-1 (Thiamine HCl) 100 Mg Tablet 100 Mg PO DAILY Alphagan P (Brimonidine Tartrate) 5 Ml Drops 2 Drop EACHEYE BID Omeprazole 20 Mg Capsule.dr 20 Mg PO DAILY Lisinopril 20 Mg Tablet 20 Mg PO DAILY Paxil (Paroxetine Hcl) 10 Mg Tablet 10 Mg PO DAILY Multivitamins (Multivitamin) 1 Each Tablet 1 Each PO DAILY Diltiazem 24HR Cd (Diltiazem Hcl) 120 Mg Cap.er.24h 240 Mg PO DAILY Metformin Hcl 500 Mg Tablet 500 Mg PO BIDWMEALS Glimepiride 2 Mg Tablet 2 Mg PO DAILY Hydrochlorothiazide Tablet (Hydrochlorothiazide) 25 Mg Tablet 25 Mg PO DAILY Vitals/I & O Vital Sign - Last 24 Hours 01/15/17 01/15/17 01/15/17 01/15/17 15:00 19:00 20:00 23:00 Temp 99.0 98.4 97.7 99.0 98.4 97.7 Pulse 94 75 87 Resp 18 20 18 B/P (MAP) 153/69 (97) 143/63 (89) 124/62 (82) Pulse Ox 98 98 98 O2 Delivery Room Air Room Air Room Air Room Air 01/16/17 01/16/17 01/16/17 01/16/17 03:00 07:00 08:20 08:30 Temp 98.1 98.8 98.1 98.8 Pulse 86 76 76 Resp 18 20 B/P (MAP) 151/67 (95) 153/68 (96) 153/68 Pulse Ox 98 99 O2 Delivery Room Air Room Air Room Air 01/16/17 01/16/17 08:34 11:00 Temp 98.6 98.6 Pulse 76 78 Resp 16 B/P (MAP) 153/68 142/63 (89) Pulse Ox 99 O2 Delivery Room Air Intake and Output 01/15/17 01/15/17 01/16/17 15:00 23:00 07:00 Intake Total 175 ml 490 ml Output Total 100 ml 1075 ml Balance 75 ml -585 ml KRISTINA LEIGH MD Jan 16, 2017 13:36
[2017-01-16 15:00] VITALS: BP 133/63
[2017-01-16 19:00] VITALS: BP 138/58
[2017-01-16] MEDS ORDERED: ACETAMINOPHEN 325 MG TABLET. PO PRN (19:45)
[2017-01-16] MEDS: ACETAMINOPHEN 325 MG TABLET. PO PRN (19:55)
[2017-01-16] MEDS: ATORVASTATIN CALCIUM 40 MG TABLET. PO SCH (21:16)
[2017-01-16] MEDS: LATANOPROST 0.005% OPHTH SOLUTION 2.5ML BOTTLE. OU SCH (21:16)
[2017-01-16 23:00] VITALS: BP 147/67
[2017-01-17 03:00] VITALS: BP 136/71
[2017-01-17] MEDS: PANTOPRAZOLE 40 MG TABLET.DR. PO SCH (06:31)
[2017-01-17] MEDS: PIPERACILLIN/TAZOBACTAM 2.25 GM in IV NORMAL SALINE 50ML 50 ML IV SCH (06:31)
[2017-01-17 07:00] VITALS: BP 157/73
[2017-01-17] MEDS: INSULIN ASPART 300 UNITS/3 ML INSULN.PEN SQ SCH ×3 (08:00→18:28)
[2017-01-17] MEDS: CHOLECALCIFEROL (VITAMIN D3) 1,000 UNIT TABLET PO SCH (08:42)
[2017-01-17] MEDS: hydroCHLOROthiazide 25 MG TABLET PO SCH (08:42)
[2017-01-17] MEDS: PARoxetine 10 MG TABLET PO SCH (08:43)
[2017-01-17] MEDS: THIAMINE 100 MG TABLET. PO SCH (08:44)
[2017-01-17] MEDS: metFORMIN 500 MG TABLET PO SCH ×2 (08:44→18:26)
[2017-01-17] MEDS: GLIMEPIRIDE 2 MG TABLET. PO SCH (08:44)
[2017-01-17] MEDS: MULTIVITAMIN with MINERAL TABLET. PO SCH (08:44)
[2017-01-17] MEDS: LISINOPRIL 20 MG TABLET PO SCH (08:44)
--- NOTE | 2017-01-17 09:42 | PDOC ---
Infectious Disease Note Subjective Subjective Doing ok ROS ROS GEN: Denies fevers, chills, sweats HEENT: Denies blurred vision, sore throat CV: Denies chest pain RESP: Denies shortness of air, cough GI: Denies n/v/d NEURO: Denies confusion, dizziness MSK: Denies weakness, joint pain/swelling Vital Sign Vital Signs Vital Signs Date Time Temp Pulse Resp B/P (MAP) Pulse Ox O2 Delivery O2 Flow Rate FiO2 01/17/17 08:44 75 157/73 01/17/17 08:20 Room Air 01/17/17 07:00 99.1 20 98 99.1 Physical Exam PHYSICAL EXAM GENERAL: NAD, Alert but feels a little warm HEENT: PERRL, OC/OP -clear NECK: Supple, no JVD, no LN LUNGS: Clear HEART: S1S2, no gallop, no murmur ABD: Soft, NT, Ostomy/Urostomy EXT: No edema, no cyanosis STERILE PROCESS TECH: Alert, oriented x 3, no focal neurologic deficit SKIN: No rash IV: ok Labs Lab Laboratory Tests Test 01/16/17 10:00 01/16/17 11:15 01/16/17 16:44 01/16/17 20:45 White Blood Count 9.9 x10^3/uL (4.0-11.0) Red Blood Count 2.74 x10^6/uL (4.30-5.70) Hemoglobin 8.6 g/dL (13.0-17.5) Hematocrit 26.1 % (39.0-53.0) Mean Corpuscular Volume 95 fL (79-100) Mean Corpuscular Hemoglobin 32 pg (25-35) Mean Corpuscular Hemoglobin Concent 33 g/dL (31-37) Red Cell Distribution Width 15.6 % (11.5-14.5) Platelet Count 310 x10^3/uL (140-400) Neutrophils (%) (Auto) 71 % (31-73) Lymphocytes (%) (Auto) 10 % (24-48) Monocytes (%) (Auto) 17 % (0-9) Eosinophils (%) (Auto) 2 % (0-3) Basophils (%) (Auto) 1 % (0-3) Neutrophils # (Auto) 7.0 x10^3uL (1.8-7.7) Lymphocytes # (Auto) 1.0 x10^3/uL (1.0-4.8) Monocytes # (Auto) 1.7 x10^3/uL (0.0-1.1) Eosinophils # (Auto) 0.2 x10^3/uL (0.0-0.7) Basophils # (Auto) 0.1 x10^3/uL (0.0-0.2) Sodium Level 141 mmol/L (136-145) Potassium Level 3.6 mmol/L (3.5-5.1) Chloride Level 107 mmol/L (98-107) Carbon Dioxide Level 24 mmol/L (21-32) Anion Gap 10 (6-14) Blood Urea Nitrogen 19 mg/dL (8-26) Creatinine 1.4 mg/dL (0.7-1.3) Estimated GFR (Cockcroft-Gault) 58.0 BUN/Creatinine Ratio 14 (6-20) Glucose Level 219 mg/dL (70-99) Calcium Level 8.7 mg/dL (8.5-10.1) Total Bilirubin 0.2 mg/dL (0.2-1.0) Aspartate Amino Transf (AST/SGOT) 16 U/L (15-37) Alanine Aminotransferase (ALT/SGPT) 19 U/L (16-63) Alkaline Phosphatase 110 U/L (46-116) Total Protein 7.1 g/dL (6.4-8.2) Albumin 2.3 g/dL (3.4-5.0) Albumin/Globulin Ratio 0.5 (1.0-1.7) Glucose (Fingerstick) 227 mg/dL (70-99) 107 mg/dL (70-99) 140 mg/dL (70-99) Test 01/17/17 07:30 Glucose (Fingerstick) 109 mg/dL (70-99) Objective Assessment Leukocytosis 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 FORTUNATO MRSA + screen Plan Plan of Care D/c Zosyn dose Meropenem F/u temp f/u labs and cult notes reviewed D/w Dr. Whaley and family SANDI WORTHINGTON MD Jan 17, 2017 09:42
[2017-01-17] MEDS: DORZOLAMIDE 2% OPHTH SOLUTION 10ML BOTTLE. OU SCH ×2 (09:47→20:37)
[2017-01-17] MEDS: BRIMONIDINE 0.2% OPHTH SOLUTION 5ML BOTTLE. OU SCH ×2 (09:48→20:38)
--- NOTE | 2017-01-17 10:32 | PDOC ---
PROGRESS NOTES Subjective Subjective Patient feeling somewhat better. Plan to transfer to skilled today but patient was febrile again last evening therefore will hold on transfer today. Daughter is available for interview today and discussion was held about's new care as well as long-term goals of assisted living. Case discussed with Dr. Hampton. Urine culture shows Citrobacter koseri which exhibits resistance to piperacillin but is most likely sensitive to Zosyn despite this antibiotic will be changed today and patient will be monitored for the next 24-48 hours until afebrile. Patient was assessed as MRSA positive urine yesterday by mistake. Patient only has nasal swab which is positive for MRSA he has no overt MRSA infection at this time. This was explained to family. Objective Objective Vital Signs Date Time Temp Pulse Resp B/P (MAP) Pulse Ox O2 Delivery O2 Flow Rate FiO2 01/17/17 08:44 75 157/73 01/17/17 08:20 Room Air 01/17/17 07:00 99.1 20 98 99.1 Intake and Output 01/17/17 07:00 Intake Total 730 ml Output Total 1100 ml Balance -370 ml Intake Oral 645 ml IV Total 85 ml Output Urine Total 1050 ml Drainage Total 50 ml # Voids 1 # Bowel Movements 1 Physical Exam Abdomen: Normal bowel sounds Heart: Regular rate Extremities: No edema General: Alert Lungs: Clear to auscultation Assessment Assessment 1. Sepsis. 2. Urinary tract infection-Citrobacter koseri 3. Acute on chronic renal failure. 4. Anemia. 5. Longstanding ileostomy and colostomy. Plan Plan of Care Continue PT and OT modalities. Transfer to senior living when stable. Patient and daughter agreeable to assisted living once therapy is finished. Antibiotic changes per infectious disease. Continue to monitor hospital until afebrile for 24-48 hours. Comment Review of Relevant I have reviewed the following items cristiano (where applicable) has been applied. Labs Laboratory Tests Test 01/15/17 11:20 01/15/17 16:47 01/15/17 20:35 01/16/17 07:29 Glucose (Fingerstick) 180 mg/dL (70-99) 342 mg/dL (70-99) 90 mg/dL (70-99) 154 mg/dL (70-99) Test 01/16/17 10:00 01/16/17 11:15 01/16/17 16:44 01/16/17 20:45 White Blood Count 9.9 x10^3/uL (4.0-11.0) Red Blood Count 2.74 x10^6/uL (4.30-5.70) Hemoglobin 8.6 g/dL (13.0-17.5) Hematocrit 26.1 % (39.0-53.0) Mean Corpuscular Volume 95 fL (79-100) Mean Corpuscular Hemoglobin 32 pg (25-35) Mean Corpuscular Hemoglobin Concent 33 g/dL (31-37) Red Cell Distribution Width 15.6 % (11.5-14.5) Platelet Count 310 x10^3/uL (140-400) Neutrophils (%) (Auto) 71 % (31-73) Lymphocytes (%) (Auto) 10 % (24-48) Monocytes (%) (Auto) 17 % (0-9) Eosinophils (%) (Auto) 2 % (0-3) Basophils (%) (Auto) 1 % (0-3) Neutrophils # (Auto) 7.0 x10^3uL (1.8-7.7) Lymphocytes # (Auto) 1.0 x10^3/uL (1.0-4.8) Monocytes # (Auto) 1.7 x10^3/uL (0.0-1.1) Eosinophils # (Auto) 0.2 x10^3/uL (0.0-0.7) Basophils # (Auto) 0.1 x10^3/uL (0.0-0.2) Sodium Level 141 mmol/L (136-145) Potassium Level 3.6 mmol/L (3.5-5.1) Chloride Level 107 mmol/L (98-107) Carbon Dioxide Level 24 mmol/L (21-32) Anion Gap 10 (6-14) Blood Urea Nitrogen 19 mg/dL (8-26) Creatinine 1.4 mg/dL (0.7-1.3) Estimated GFR (Cockcroft-Gault) 58.0 BUN/Creatinine Ratio 14 (6-20) Glucose Level 219 mg/dL (70-99) Calcium Level 8.7 mg/dL (8.5-10.1) Total Bilirubin 0.2 mg/dL (0.2-1.0) Aspartate Amino Transf (AST/SGOT) 16 U/L (15-37) Alanine Aminotransferase (ALT/SGPT) 19 U/L (16-63) Alkaline Phosphatase 110 U/L (46-116) Total Protein 7.1 g/dL (6.4-8.2) Albumin 2.3 g/dL (3.4-5.0) Albumin/Globulin Ratio 0.5 (1.0-1.7) Glucose (Fingerstick) 227 mg/dL (70-99) 107 mg/dL (70-99) 140 mg/dL (70-99) Test 01/17/17 07:30 Glucose (Fingerstick) 109 mg/dL (70-99) Laboratory Tests Test 01/16/17 11:15 01/16/17 16:44 01/16/17 20:45 01/17/17 07:30 Glucose (Fingerstick) 227 mg/dL (70-99) 107 mg/dL (70-99) 140 mg/dL (70-99) 109 mg/dL (70-99) Microbiology 01/14/17 Urine Culture - Final, Complete 01/14/17 Urine Culture Result 1 (HERBERT) - Final, Complete 01/14/17 Antimicrobic Susceptibility - Final, Complete Medications Current Medications Acetaminophen (Tylenol) 1,000 mg 1X ONCE PO Last administered on 01/14/17 17: 21; Start 01/14/17 at 17:00; Stop 01/14/17 at 17:01; Status DC Sodium Chloride 1,000 ml @ 100 mls/hr Q10H IV Last administered on 01/14/17 20:08; Start 01/14/17 at 17:00; Stop 01/15/17 at 02:59; Status DC Vancomycin HCl (Vanco Per Pharmacy) 1 each PRN DAILY PRN MC SEE COMMENTS Last administered on 01/15/17 14:56; Start 01/14/17 at 17:45; Stop 01/16/17 at 10:54 ; Status DC Piperacillin Sod/ Tazobactam Sod (Zosyn Per Pharmacy) 1 each PRN DAILY PRN MC SEE COMMENTS; Start 01/14/17 at 17:45; Stop 01/17/17 at 09:41; Status DC Sodium Chloride 1,000 ml @ 1,000 mls/hr 1X ONCE IV Last administered on 18:00; Start 01/14/17 at 18:00; Stop 01/14/17 at 18:59; Status DC Vancomycin HCl 1.5 gm/Sodium Chloride 500 ml @ 250 mls/hr 1X ONCE IV Last administered on 01/14/17 20:09; Start 01/14/17 at 18:00; Stop 01/14/17 at 19:59 ; Status DC Piperacillin Sod/ Tazobactam Sod 3.375 gm/Sodium Chloride 50 ml @ 100 mls/hr 1X ONCE IV Last administered on 01/14/17 18:06; Start 01/14/17 at 18:00; Stop 01/14/17 at 18:29; Status DC Piperacillin Sod/ Tazobactam Sod 2.25 gm/Sodium Chloride 50 ml @ 100 mls/hr Q6HRS IV Last administered on 01/17/17 06:31; Start 01/15/17 at 00:00; Stop at 09:41; Status DC Ondansetron HCl (Zofran) 4 mg PRN Q8HRS PRN IV NAUSEA/VOMITING; Start 01/14/17 at 18:15; Stop 01/15/17 at 18:14; Status DC Acetaminophen (Tylenol) 650 mg PRN Q4HRS PRN PO FEVER; Start 01/14/17 at 18:15 ; Stop 01/15/17 at 18:14; Status DC Insulin Aspart (NovoLOG) 0-5 UNITS TIDWMEALS SQ Last administered on 01/16/17 12:23; Start 01/15/17 at 08:00 Dextrose (Dextrose 50%-Water Syringe) 12.5 gm PRN Q15MIN PRN IV SEE COMMENTS; Start 01/14/17 at 18:15 Vancomycin HCl 1 gm/Sodium Chloride 250 ml @ 250 mls/hr Q24H IV Last administered on 01/15/17 20:28; Start 01/15/17 at 20:00; Stop 01/16/17 at 10:54 ; Status DC Vancomycin HCl 1 each 1X ONCE MC ; Start 01/16/17 at 19:30; Stop 01/16/17 at 19 :30; Status DC Vitamin D (Vitamin D3) 1,000 unit DAILY PO Last administered on 01/17/17 08:42 ; Start 01/15/17 at 13:00 Diltiazem HCl (Cardizem 24hr Cd) 240 mg DAILY PO Last administered on 08:44; Start 01/15/17 at 13:00 Dorzolamide HCl (Trusopt) 1 drop BID OU Last administered on 01/17/17 09:47; Start 01/15/17 at 21:00 Glimepiride (Amaryl) 2 mg DAILY PO Last administered on 01/17/17 08:44; Start 01/15/17 at 13:00 Hydrochlorothiazide (Hydrodiuril) 25 mg DAILY PO Last administered on 08:42; Start 01/15/17 at 13:00 Latanoprost (Xalatan) 1 drop HS OU Last administered on 01/16/17 21:16; Start 01/15/17 at 21:00 Lisinopril (Prinivil) 20 mg DAILY PO Last administered on 01/17/17 08:44; Start 01/15/17 at 13:00 Metformin HCl (Glucophage) 500 mg BIDWMEALS PO Last administered on 01/17/17 08:44; Start 01/15/17 at 17:00 Paroxetine HCl (Paxil) 10 mg DAILY PO Last administered on 01/17/17 08:43; Start 01/15/17 at 13:00 Brimonidine Tartrate (Alphagan) 2 drop BID OU Last administered on 01/17/17 09 :48; Start 01/15/17 at 21:00 Multivitamins (Thera M Plus) 1 tab DAILY PO Last administered on 01/17/17 08: 44; Start 01/15/17 at 13:00 Pantoprazole Sodium (Protonix) 40 mg DAILYAC PO Last administered on 01/17/17 06:31; Start 01/15/17 at 16:30 Atorvastatin Calcium (Lipitor) 40 mg QHS PO Last administered on 01/16/17 21: 16; Start 01/15/17 at 21:00 Thiamine Mononitrate (Vitamin B-1) 100 mg DAILY PO Last administered on 08:44; Start 01/15/17 at 13:00 Enoxaparin Sodium (Lovenox 40mg Syringe) 40 mg Q24H SQ Last administered on 6/ 27/17at 12:17; Start 01/15/17 at 13:00 Acetaminophen (Tylenol) 325 mg PRN Q6HRS PRN PO MILD PAIN / TEMP; Start at 19:45 Acetaminophen (Tylenol) 650 mg PRN Q6HRS PRN PO FEVER > 101 Last administered on 01/16/17 19:55; Start 01/16/17 at 19:45 Meropenem 500 mg/ Sodium Chloride 50 ml @ 100 mls/hr Q6HRS IV ; Start 01/17/17 at 10:30 Active Scripts Active Reported Dorzolamide Hcl 10 Ml Drops 1 Drop EACHEYE BID Crestor (Rosuvastatin Calcium) 10 Mg Tablet 10 Mg PO HS Latanoprost 2.5 Ml Drops 1 Drop OP HS Vitamin D3 (Cholecalciferol (Vitamin D3)) 1,000 Unit Tablet 1,000 Unit PO DAILY B-1 (Thiamine HCl) 100 Mg Tablet 100 Mg PO DAILY Alphagan P (Brimonidine Tartrate) 5 Ml Drops 2 Drop EACHEYE BID Omeprazole 20 Mg Capsule.dr 20 Mg PO DAILY Lisinopril 20 Mg Tablet 20 Mg PO DAILY Paxil (Paroxetine Hcl) 10 Mg Tablet 10 Mg PO DAILY Multivitamins (Multivitamin) 1 Each Tablet 1 Each PO DAILY Diltiazem 24HR Cd (Diltiazem Hcl) 120 Mg Cap.er.24h 240 Mg PO DAILY Metformin Hcl 500 Mg Tablet 500 Mg PO BIDWMEALS Glimepiride 2 Mg Tablet 2 Mg PO DAILY Hydrochlorothiazide Tablet (Hydrochlorothiazide) 25 Mg Tablet 25 Mg PO DAILY Vitals/I & O Vital Sign - Last 24 Hours 01/16/17 01/16/17 01/16/17 01/16/17 11:00 15:00 19:00 19:50 Temp 98.6 99.5 101.0 98.6 99.5 101.0 Pulse 78 74 71 Resp 16 16 18 B/P (MAP) 142/63 (89) 133/63 (86) 138/58 (84) Pulse Ox 99 98 94 O2 Delivery Room Air Room Air Room Air Room Air 01/16/17 01/17/17 01/17/17 01/17/17 23:00 03:00 07:00 08:20 Temp 99.9 97.1 99.1 99.9 97.1 99.1 Pulse 82 72 75 Resp 18 18 20 B/P (MAP) 147/67 (93) 136/71 (92) 157/73 (101) Pulse Ox 94 98 98 O2 Delivery Room Air Room Air Room Air Room Air 01/17/17 01/17/17 08:44 08:44 Pulse 98 75 B/P (MAP) 157/73 157/73 Intake and Output 01/16/17 01/16/17 01/17/17 15:00 23:00 07:00 Intake Total 570 ml 160 ml Output Total 350 ml 150 ml 600 ml Balance -350 ml 420 ml -440 ml KRISTINA LEIGH MD Jan 17, 2017 10:32
[2017-01-17 11:00] VITALS: BP 149/69
[2017-01-17] MEDS: MEROPENEM 500 MG in IV NORMAL SALINE 50ML 50 ML IV SCH ×2 (11:14→18:25)
[2017-01-17] MEDS: ENOXAPARIN 40 MG/0.4 ML SYRINGE. SQ SCH (14:32)
[2017-01-17 15:00] VITALS: BP 150/71
[2017-01-17 19:00] VITALS: BP 149/68
[2017-01-17] MEDS: LATANOPROST 0.005% OPHTH SOLUTION 2.5ML BOTTLE. OU SCH (20:37)
[2017-01-17] MEDS: ATORVASTATIN CALCIUM 40 MG TABLET. PO SCH (20:38)
[2017-01-17] MEDS: ACETAMINOPHEN 325 MG TABLET. PO PRN (20:38)
[2017-01-17 23:00] VITALS: BP 139/62
[2017-01-18] MEDS: MEROPENEM 500 MG in IV NORMAL SALINE 50ML 50 ML IV SCH ×5 (00:13→23:29)
[2017-01-18 03:00] VITALS: BP 164/67
[2017-01-18] MEDS: PANTOPRAZOLE 40 MG TABLET.DR. PO SCH (06:34)
[2017-01-18 07:00] VITALS: BP 154/86
[2017-01-18] MEDS: INSULIN ASPART 300 UNITS/3 ML INSULN.PEN SQ SCH ×3 (08:00→17:00)
--- NOTE | 2017-01-18 08:55 | PDOC ---
Infectious Disease Note Subjective Subjective Doing ok Eating No complaints ROS ROS GEN: Denies fevers, chills, sweats HEENT: Denies blurred vision, sore throat CV: Denies chest pain RESP: Denies shortness of air, cough GI: Denies n/v/d NEURO: Denies confusion, dizziness MSK: Denies weakness, joint pain/swelling Vital Sign Vital Signs Vital Signs Date Time Temp Pulse Resp B/P (MAP) Pulse Ox O2 Delivery O2 Flow Rate FiO2 01/18/17 07:00 101.3 86 20 154/86 (108) 99 Room Air 101.3 Physical Exam PHYSICAL EXAM GENERAL: NAD, Alert but feels a little warm HEENT: PERRL, OC/OP -clear NECK: Supple, no JVD, no LN LUNGS: Clear HEART: S1S2, no gallop, no murmur ABD: Soft, NT, Ostomy/Urostomy EXT: No edema, no cyanosis RECEIVING INSPECTOR: Alert, oriented x 3, no focal neurologic deficit SKIN: No rash IV: ok Labs Lab Laboratory Tests Test 01/17/17 10:48 01/17/17 16:26 01/17/17 20:41 01/18/17 08:07 Glucose (Fingerstick) 227 mg/dL (70-99) 165 mg/dL (70-99) 119 mg/dL (70-99) 131 mg/dL (70-99) Objective Assessment Fever Leukocytosis 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 FORTUNATO MRSA + screen Plan Plan of Care Cont Meropenem Dose Zyvox avoid vanc with FORTUNATO with + MRSA screen Check blood cult/Procalcitonin/Sed rate CT abd/pelvis oral contrast only given renal failure F/u temp f/u labs and cult notes reviewed SANDI WORTHINGTON MD Jan 18, 2017 08:55
[2017-01-18] MEDS: GLIMEPIRIDE 2 MG TABLET. PO SCH (09:14)
[2017-01-18] MEDS: MULTIVITAMIN with MINERAL TABLET. PO SCH (09:14)
[2017-01-18] MEDS: ACETAMINOPHEN 325 MG TABLET. PO PRN (09:14)
[2017-01-18] MEDS: LISINOPRIL 20 MG TABLET PO SCH (09:14)
[2017-01-18] MEDS: THIAMINE 100 MG TABLET. PO SCH (09:14)
[2017-01-18] MEDS: PARoxetine 10 MG TABLET PO SCH (09:14)
[2017-01-18] MEDS: DORZOLAMIDE 2% OPHTH SOLUTION 10ML BOTTLE. OU SCH ×2 (09:15→21:10)
[2017-01-18] MEDS: CHOLECALCIFEROL (VITAMIN D3) 1,000 UNIT TABLET PO SCH (09:15)
[2017-01-18] MEDS: metFORMIN 500 MG TABLET PO SCH ×2 (09:15→17:41)
[2017-01-18] MEDS: BRIMONIDINE 0.2% OPHTH SOLUTION 5ML BOTTLE. OU SCH ×2 (09:15→21:10)
[2017-01-18] MEDS: hydroCHLOROthiazide 25 MG TABLET PO SCH (09:15)
[2017-01-18] MEDS ORDERED: IOHEXOL 240 MG/ML 50ML VIAL. PO ONE (10:00)
[2017-01-18 10:12] LABS: BASO # 0.1 x10^3/uL (0.0-0.2); BASO % 1 % (0-3); EOS % 1 % (0-3); HEMATOCRIT 22.2 % (39.0-53.0); HEMOGLOBIN 7.2 g/dL (13.0-17.5); LYMPH % 9 % (24-48); MEAN CORPUSCULAR HEMOGLOBIN 31 pg (25-35); MEAN CORPUSCULAR HGB CONC 33 g/dL (31-37); MEAN CORPUSCULAR VOLUME 95 fL (79-100); MONO % 18 % (0-9); NEUT % 71 % (31-73); PLATELET COUNT 313 x10^3/uL (140-400); RED BLOOD COUNT 2.34 x10^6/uL (4.30-5.70); WHITE BLOOD COUNT 11.4 x10^3/uL (4.0-11.0)
[2017-01-18 10:29] LABS: CALCIUM 8.7 mg/dL (8.5-10.1); CREATININE 1.4 mg/dL (0.7-1.3); POTASSIUM 3.6 mmol/L (3.5-5.1)
[2017-01-18 11:00] VITALS: BP 151/74
[2017-01-18] MEDS: ENOXAPARIN 40 MG/0.4 ML SYRINGE. SQ SCH (12:29)
--- NOTE | 2017-01-18 12:47 | RAD ---
Indication: Fever and acute kidney injury. Axial imaging through the abdomen and pelvis was performed without contrast. No prior studies are available for comparison. There appears to be trace bilateral pleural effusions or pleural thickening with mild bibasilar dependent atelectasis. No discrete liver mass is detected. The gallbladder is unremarkable. The pancreas and spleen are unremarkable. No adrenal mass is detected. The right kidney is unremarkable. There are rounded low density masses within the left kidney, the largest 3.8 cm in diameter and most consistent with a cyst. No calculi or hydronephrosis is identified. The aorta is calcified but nonaneurysmal. Postsurgical changes in the right lower quadrant are seen. There is an an anastomosis with a focally dilated bowel loop in the right lower quadrant. No wall thickening is seen. There are ostomies in the right and left lower quadrants. No free fluid in the abdomen or pelvis is seen. No focal fluid collection is identified. Imaging through the pelvis does show probable postsurgical changes to the rectum. There appears to have been resection of the distal colon and rectum. No definite lymphadenopathy is seen. Impression: 1. Trace bilateral pleural effusions and bibasilar dependent atelectasis. 2. Postop changes in the abdomen. No focal fluid collection or abscess is seen. There is no free air. No acute abnormality is identified.
[2017-01-18 15:00] VITALS: BP 171/74
--- NOTE | 2017-01-18 18:05 | PDOC ---
PROGRESS NOTES Subjective Subjective Patient continues to have fever. Patient has no new complaints. Antibiotics changed yesterday and CT abdomen and pelvis done to rule out abscess today. Objective Objective Vital Signs Date Time Temp Pulse Resp B/P (MAP) Pulse Ox O2 Delivery O2 Flow Rate FiO2 01/18/17 15:00 98.1 81 20 171/74 (106) 99 Room Air 98.1 Intake and Output 01/18/17 07:00 Intake Total 0 ml Output Total 3175 ml Balance -3175 ml Intake Oral 0 ml Output Urine Total 725 ml Drainage Total 2450 ml Physical Exam Abdomen: Normal bowel sounds Heart: Regular rate Extremities: No edema General: Alert Lungs: Clear to auscultation Assessment Assessment 1. Sepsis. 2. Urinary tract infection-Citrobacter koseri 3. Acute on chronic renal failure. 4. Anemia. 5. Longstanding ileostomy and colostomy. Plan Plan of Care Continue IV antibiotics. Recheck CBC in a.m. consider transfusion if hemoglobin decreases. Consider GI referral due to ongoing anemia. Comment Review of Relevant I have reviewed the following items cristiano (where applicable) has been applied. Labs Laboratory Tests Test 01/16/17 20:45 01/17/17 07:30 01/17/17 10:48 01/17/17 16:26 Glucose (Fingerstick) 140 mg/dL (70-99) 109 mg/dL (70-99) 227 mg/dL (70-99) 165 mg/dL (70-99) Test 01/17/17 20:41 01/18/17 08:07 01/18/17 09:50 01/18/17 12:01 Glucose (Fingerstick) 119 mg/dL (70-99) 131 mg/dL (70-99) 180 mg/dL (70-99) White Blood Count 11.4 x10^3/uL (4.0-11.0) Red Blood Count 2.34 x10^6/uL (4.30-5.70) Hemoglobin 7.2 g/dL (13.0-17.5) Hematocrit 22.2 % (39.0-53.0) Mean Corpuscular Volume 95 fL (79-100) Mean Corpuscular Hemoglobin 31 pg (25-35) Mean Corpuscular Hemoglobin Concent 33 g/dL (31-37) Red Cell Distribution Width 16.0 % (11.5-14.5) Platelet Count 313 x10^3/uL (140-400) Neutrophils (%) (Auto) 71 % (31-73) Lymphocytes (%) (Auto) 9 % (24-48) Monocytes (%) (Auto) 18 % (0-9) Eosinophils (%) (Auto) 1 % (0-3) Basophils (%) (Auto) 1 % (0-3) Neutrophils # (Auto) 8.1 x10^3uL (1.8-7.7) Lymphocytes # (Auto) 1.0 x10^3/uL (1.0-4.8) Monocytes # (Auto) 2.1 x10^3/uL (0.0-1.1) Eosinophils # (Auto) 0.1 x10^3/uL (0.0-0.7) Basophils # (Auto) 0.1 x10^3/uL (0.0-0.2) Erythrocyte Sedimentation Rate > 140 (0-15) Sodium Level 138 mmol/L (136-145) Potassium Level 3.6 mmol/L (3.5-5.1) Chloride Level 105 mmol/L (98-107) Carbon Dioxide Level 26 mmol/L (21-32) Anion Gap 7 (6-14) Blood Urea Nitrogen 20 mg/dL (8-26) Creatinine 1.4 mg/dL (0.7-1.3) Estimated GFR (Cockcroft-Gault) 58.0 Glucose Level 226 mg/dL (70-99) Calcium Level 8.7 mg/dL (8.5-10.1) Procalcitonin 0.74 ng/mL (0.00-0.10) Test 01/18/17 17:08 Glucose (Fingerstick) 112 mg/dL (70-99) Laboratory Tests Test 01/17/17 20:41 01/18/17 08:07 01/18/17 09:50 01/18/17 12:01 Glucose (Fingerstick) 119 mg/dL (70-99) 131 mg/dL (70-99) 180 mg/dL (70-99) White Blood Count 11.4 x10^3/uL (4.0-11.0) Red Blood Count 2.34 x10^6/uL (4.30-5.70) Hemoglobin 7.2 g/dL (13.0-17.5) Hematocrit 22.2 % (39.0-53.0) Mean Corpuscular Volume 95 fL (79-100) Mean Corpuscular Hemoglobin 31 pg (25-35) Mean Corpuscular Hemoglobin Concent 33 g/dL (31-37) Red Cell Distribution Width 16.0 % (11.5-14.5) Platelet Count 313 x10^3/uL (140-400) Neutrophils (%) (Auto) 71 % (31-73) Lymphocytes (%) (Auto) 9 % (24-48) Monocytes (%) (Auto) 18 % (0-9) Eosinophils (%) (Auto) 1 % (0-3) Basophils (%) (Auto) 1 % (0-3) Neutrophils # (Auto) 8.1 x10^3uL (1.8-7.7) Lymphocytes # (Auto) 1.0 x10^3/uL (1.0-4.8) Monocytes # (Auto) 2.1 x10^3/uL (0.0-1.1) Eosinophils # (Auto) 0.1 x10^3/uL (0.0-0.7) Basophils # (Auto) 0.1 x10^3/uL (0.0-0.2) Erythrocyte Sedimentation Rate > 140 (0-15) Sodium Level 138 mmol/L (136-145) Potassium Level 3.6 mmol/L (3.5-5.1) Chloride Level 105 mmol/L (98-107) Carbon Dioxide Level 26 mmol/L (21-32) Anion Gap 7 (6-14) Blood Urea Nitrogen 20 mg/dL (8-26) Creatinine 1.4 mg/dL (0.7-1.3) Estimated GFR (Cockcroft-Gault) 58.0 Glucose Level 226 mg/dL (70-99) Calcium Level 8.7 mg/dL (8.5-10.1) Procalcitonin 0.74 ng/mL (0.00-0.10) Test 01/18/17 17:08 Glucose (Fingerstick) 112 mg/dL (70-99) Microbiology 01/14/17 Urine Culture - Final, Complete 01/14/17 Urine Culture Result 1 (HERBERT) - Final, Complete 01/14/17 Antimicrobic Susceptibility - Final, Complete Medications Current Medications Acetaminophen (Tylenol) 1,000 mg 1X ONCE PO Last administered on 01/14/17 17: 21; Start 01/14/17 at 17:00; Stop 01/14/17 at 17:01; Status DC Sodium Chloride 1,000 ml @ 100 mls/hr Q10H IV Last administered on 01/14/17 20:08; Start 01/14/17 at 17:00; Stop 01/15/17 at 02:59; Status DC Vancomycin HCl (Vanco Per Pharmacy) 1 each PRN DAILY PRN MC SEE COMMENTS Last administered on 01/15/17 14:56; Start 01/14/17 at 17:45; Stop 01/16/17 at 10:54 ; Status DC Piperacillin Sod/ Tazobactam Sod (Zosyn Per Pharmacy) 1 each PRN DAILY PRN MC SEE COMMENTS; Start 01/14/17 at 17:45; Stop 01/17/17 at 09:41; Status DC Sodium Chloride 1,000 ml @ 1,000 mls/hr 1X ONCE IV Last administered on 18:00; Start 01/14/17 at 18:00; Stop 01/14/17 at 18:59; Status DC Vancomycin HCl 1.5 gm/Sodium Chloride 500 ml @ 250 mls/hr 1X ONCE IV Last administered on 01/14/17 20:09; Start 01/14/17 at 18:00; Stop 01/14/17 at 19:59 ; Status DC Piperacillin Sod/ Tazobactam Sod 3.375 gm/Sodium Chloride 50 ml @ 100 mls/hr 1X ONCE IV Last administered on 01/14/17 18:06; Start 01/14/17 at 18:00; Stop 01/14/17 at 18:29; Status DC Piperacillin Sod/ Tazobactam Sod 2.25 gm/Sodium Chloride 50 ml @ 100 mls/hr Q6HRS IV Last administered on 01/17/17 06:31; Start 01/15/17 at 00:00; Stop at 09:41; Status DC Ondansetron HCl (Zofran) 4 mg PRN Q8HRS PRN IV NAUSEA/VOMITING; Start 01/14/17 at 18:15; Stop 01/15/17 at 18:14; Status DC Acetaminophen (Tylenol) 650 mg PRN Q4HRS PRN PO FEVER; Start 01/14/17 at 18:15 ; Stop 01/15/17 at 18:14; Status DC Insulin Aspart (NovoLOG) 0-5 UNITS TIDWMEALS SQ Last administered on 01/18/17 12:34; Start 01/15/17 at 08:00 Dextrose (Dextrose 50%-Water Syringe) 12.5 gm PRN Q15MIN PRN IV SEE COMMENTS; Start 01/14/17 at 18:15 Vancomycin HCl 1 gm/Sodium Chloride 250 ml @ 250 mls/hr Q24H IV Last administered on 01/15/17 20:28; Start 01/15/17 at 20:00; Stop 01/16/17 at 10:54 ; Status DC Vancomycin HCl 1 each 1X ONCE MC ; Start 01/16/17 at 19:30; Stop 01/16/17 at 19 :30; Status DC Vitamin D (Vitamin D3) 1,000 unit DAILY PO Last administered on 01/18/17 09:15 ; Start 01/15/17 at 13:00 Diltiazem HCl (Cardizem 24hr Cd) 240 mg DAILY PO Last administered on 09:15; Start 01/15/17 at 13:00 Dorzolamide HCl (Trusopt) 1 drop BID OU Last administered on 01/18/17 09:15; Start 01/15/17 at 21:00 Glimepiride (Amaryl) 2 mg DAILY PO Last administered on 01/18/17 09:14; Start 01/15/17 at 13:00 Hydrochlorothiazide (Hydrodiuril) 25 mg DAILY PO Last administered on 09:15; Start 01/15/17 at 13:00 Latanoprost (Xalatan) 1 drop HS OU Last administered on 01/17/17 20:37; Start 01/15/17 at 21:00 Lisinopril (Prinivil) 20 mg DAILY PO Last administered on 01/18/17 09:14; Start 01/15/17 at 13:00 Metformin HCl (Glucophage) 500 mg BIDWMEALS PO Last administered on 01/18/17 17:41; Start 01/15/17 at 17:00 Paroxetine HCl (Paxil) 10 mg DAILY PO Last administered on 01/18/17 09:14; Start 01/15/17 at 13:00 Brimonidine Tartrate (Alphagan) 2 drop BID OU Last administered on 01/18/17 09 :15; Start 01/15/17 at 21:00 Multivitamins (Thera M Plus) 1 tab DAILY PO Last administered on 01/18/17 09: 14; Start 01/15/17 at 13:00 Pantoprazole Sodium (Protonix) 40 mg DAILYAC PO Last administered on 01/18/17 06:34; Start 01/15/17 at 16:30 Atorvastatin Calcium (Lipitor) 40 mg QHS PO Last administered on 01/17/17 20: 38; Start 01/15/17 at 21:00 Thiamine Mononitrate (Vitamin B-1) 100 mg DAILY PO Last administered on 09:14; Start 01/15/17 at 13:00 Enoxaparin Sodium (Lovenox 40mg Syringe) 40 mg Q24H SQ Last administered on 12:29; Start 01/15/17 at 13:00 Acetaminophen (Tylenol) 325 mg PRN Q6HRS PRN PO MILD PAIN / TEMP; Start at 19:45 Acetaminophen (Tylenol) 650 mg PRN Q6HRS PRN PO FEVER > 101 Last administered on 01/18/17 09:14; Start 01/16/17 at 19:45 Meropenem 500 mg/ Sodium Chloride 50 ml @ 100 mls/hr Q6HRS IV Last administered on 01/18/17 17:42; Start 01/17/17 at 10:30 Linezolid 300 ml @ 300 mls/hr Q12HR IV Last administered on 01/18/17 10:02; Start 01/18/17 at 09:30 Iohexol (Omnipaque 240 Mg/ml) 30 ml 1X ONCE PO Last administered on 01/18/17 10:00; Start 01/18/17 at 10:00; Stop 01/18/17 at 10:01; Status DC Active Scripts Active Reported Dorzolamide Hcl 10 Ml Drops 1 Drop EACHEYE BID Crestor (Rosuvastatin Calcium) 10 Mg Tablet 10 Mg PO HS Latanoprost 2.5 Ml Drops 1 Drop OP HS Vitamin D3 (Cholecalciferol (Vitamin D3)) 1,000 Unit Tablet 1,000 Unit PO DAILY B-1 (Thiamine HCl) 100 Mg Tablet 100 Mg PO DAILY Alphagan P (Brimonidine Tartrate) 5 Ml Drops 2 Drop EACHEYE BID Omeprazole 20 Mg Capsule.dr 20 Mg PO DAILY Lisinopril 20 Mg Tablet 20 Mg PO DAILY Paxil (Paroxetine Hcl) 10 Mg Tablet 10 Mg PO DAILY Multivitamins (Multivitamin) 1 Each Tablet 1 Each PO DAILY Diltiazem 24HR Cd (Diltiazem Hcl) 120 Mg Cap.er.24h 240 Mg PO DAILY Metformin Hcl 500 Mg Tablet 500 Mg PO BIDWMEALS Glimepiride 2 Mg Tablet 2 Mg PO DAILY Hydrochlorothiazide Tablet (Hydrochlorothiazide) 25 Mg Tablet 25 Mg PO DAILY Vitals/I & O Vital Sign - Last 24 Hours 01/17/17 01/17/17 01/17/17 01/18/17 19:00 20:30 23:00 03:00 Temp 101.0 100.4 100.4 101.0 100.4 100.4 Pulse 92 85 87 Resp 20 20 18 B/P (MAP) 149/68 (95) 139/62 (87) 164/67 (99) Pulse Ox 98 100 98 O2 Delivery Room Air Room Air Room Air Room Air 01/18/17 01/18/17 01/18/17 01/18/17 07:00 09:14 09:15 11:00 Temp 101.3 99.2 101.3 99.2 Pulse 86 86 86 84 Resp 20 20 B/P (MAP) 154/86 (108) 154/86 154/86 151/74 (99) Pulse Ox 99 99 O2 Delivery Room Air Room Air 01/18/17 15:00 Temp 98.1 98.1 Pulse 81 Resp 20 B/P (MAP) 171/74 (106) Pulse Ox 99 O2 Delivery Room Air Intake and Output 01/17/17 01/17/17 01/18/17 15:00 23:00 07:00 Intake Total 0 ml Output Total 900 ml 1875 ml 400 ml Balance -900 ml -1875 ml -400 ml KRISTINA LEIGH MD Jan 18, 2017 18:05
[2017-01-18] MEDS ORDERED: cloNIDine HCL 0.1 MG TABLET PO PRN (18:15)
[2017-01-18 19:55] VITALS: BP 151/72
[2017-01-18] MEDS: LATANOPROST 0.005% OPHTH SOLUTION 2.5ML BOTTLE. OU SCH (21:10)
[2017-01-18] MEDS: ATORVASTATIN CALCIUM 40 MG TABLET. PO SCH (21:11)
[2017-01-18 23:09] VITALS: BP 146/73
[2017-01-18] MEDS ORDERED: ONDANSETRON PF 4 MG/2 ML VIAL. IV PRN (23:15)
[2017-01-19 03:40] VITALS: BP 129/63
[2017-01-19] MEDS: MEROPENEM 500 MG in IV NORMAL SALINE 50ML 50 ML IV SCH ×3 (06:26→21:07)
[2017-01-19] MEDS: PANTOPRAZOLE 40 MG TABLET.DR. PO SCH (06:26)
[2017-01-19 06:42] LABS: BASO % 0 % (0-3); EOS % 1 % (0-3); HEMATOCRIT 23.9 % (39.0-53.0); HEMOGLOBIN 7.7 g/dL (13.0-17.5); LYMPH # 1.2 x10^3/uL (1.0-4.8); LYMPH % 10 % (24-48); MEAN CORPUSCULAR HEMOGLOBIN 31 pg (25-35); MEAN CORPUSCULAR HGB CONC 32 g/dL (31-37); MEAN CORPUSCULAR VOLUME 96 fL (79-100); MONO % 16 % (0-9); NEUT % 72 % (31-73); PLATELET COUNT 336 x10^3/uL (140-400); RED BLOOD COUNT 2.48 x10^6/uL (4.30-5.70); RED CELL DISTRIBUTION WIDTH 15.7 % (11.5-14.5); WHITE BLOOD COUNT 11.4 x10^3/uL (4.0-11.0)
[2017-01-19 07:00] VITALS: BP 162/75
[2017-01-19 07:20] LABS: ALBUMIN 2.3 g/dL (3.4-5.0); ALBUMIN/GLOBULIN RATIO 0.6 (1.0-1.7); CALCIUM 8.7 mg/dL (8.5-10.1); CREATININE 1.2 mg/dL (0.7-1.3); GFR 69.3; POTASSIUM 4.2 mmol/L (3.5-5.1); TOTAL BILIRUBIN 0.1 mg/dL (0.2-1.0); TOTAL PROTEIN 6.2 g/dL (6.4-8.2)
[2017-01-19] MEDS: INSULIN ASPART 300 UNITS/3 ML INSULN.PEN SQ SCH ×3 (08:00→16:55)
--- NOTE | 2017-01-19 09:19 | PDOC2 ---
GI CONSULT Reason For Consult: Anemia HPI: HPI: 86 y/o male w/ h/o colorectal cancer w/ colostomy and prostate and/or bladder cancer w/ urostomy, admitted w/ pyelonephritis and sepsis. Not much history from patient, alone in room this morning. Admits to h/o anemia. Denies pain, n /v, change in ostomy/urostomy output, and obvious bleeding. Per RN, no obvious bleeding. Other notes suggest weight loss. Hgb on admission was 8.7, drifted to lowest of 7.2, is 7.7 this morning. PMH: PMH: DM, HTN, CKD, HLD, glaucoma, colorectal cancer s/p colostomy, bladder/prostate cancer s/p ileal conduit, back surgery, cystoscopy FH: Family History: No pertinent hx Social History: Smoke: No Drugs: None ROS: Difficult to obtain. GEN: +fevers HEENT: Denies blurred vision, sore throat CV: Denies chest pain RESP: Denies shortness of air, cough GI: Per HPI : Denies hematuria, dysuria ENDO: +weight loss NEURO: Denies confusion, dizziness MSK: +weakness SKIN: Denies jaundice, pruritus Vitals: Vitals: Vital Signs Date Time Temp Pulse Resp B/P (MAP) Pulse Ox O2 Delivery O2 Flow Rate FiO2 01/19/17 07:00 98.8 83 20 162/75 (104) 95 Room Air 98.8 Labs: Labs: Laboratory Tests Test 01/18/17 09:50 01/18/17 12:01 01/18/17 17:08 01/18/17 20:47 White Blood Count 11.4 x10^3/uL (4.0-11.0) Red Blood Count 2.34 x10^6/uL (4.30-5.70) Hemoglobin 7.2 g/dL (13.0-17.5) Hematocrit 22.2 % (39.0-53.0) Mean Corpuscular Volume 95 fL (79-100) Mean Corpuscular Hemoglobin 31 pg (25-35) Mean Corpuscular Hemoglobin Concent 33 g/dL (31-37) Red Cell Distribution Width 16.0 % (11.5-14.5) Platelet Count 313 x10^3/uL (140-400) Neutrophils (%) (Auto) 71 % (31-73) Lymphocytes (%) (Auto) 9 % (24-48) Monocytes (%) (Auto) 18 % (0-9) Eosinophils (%) (Auto) 1 % (0-3) Basophils (%) (Auto) 1 % (0-3) Neutrophils # (Auto) 8.1 x10^3uL (1.8-7.7) Lymphocytes # (Auto) 1.0 x10^3/uL (1.0-4.8) Monocytes # (Auto) 2.1 x10^3/uL (0.0-1.1) Eosinophils # (Auto) 0.1 x10^3/uL (0.0-0.7) Basophils # (Auto) 0.1 x10^3/uL (0.0-0.2) Erythrocyte Sedimentation Rate > 140 (0-15) Sodium Level 138 mmol/L (136-145) Potassium Level 3.6 mmol/L (3.5-5.1) Chloride Level 105 mmol/L (98-107) Carbon Dioxide Level 26 mmol/L (21-32) Anion Gap 7 (6-14) Blood Urea Nitrogen 20 mg/dL (8-26) Creatinine 1.4 mg/dL (0.7-1.3) Estimated GFR (Cockcroft-Gault) 58.0 Glucose Level 226 mg/dL (70-99) Calcium Level 8.7 mg/dL (8.5-10.1) Procalcitonin 0.74 ng/mL (0.00-0.10) Glucose (Fingerstick) 180 mg/dL (70-99) 112 mg/dL (70-99) 105 mg/dL (70-99) Test 01/19/17 05:20 01/19/17 07:31 White Blood Count 11.4 x10^3/uL (4.0-11.0) Red Blood Count 2.48 x10^6/uL (4.30-5.70) Hemoglobin 7.7 g/dL (13.0-17.5) Hematocrit 23.9 % (39.0-53.0) Mean Corpuscular Volume 96 fL (79-100) Mean Corpuscular Hemoglobin 31 pg (25-35) Mean Corpuscular Hemoglobin Concent 32 g/dL (31-37) Red Cell Distribution Width 15.7 % (11.5-14.5) Platelet Count 336 x10^3/uL (140-400) Neutrophils (%) (Auto) 72 % (31-73) Lymphocytes (%) (Auto) 10 % (24-48) Monocytes (%) (Auto) 16 % (0-9) Eosinophils (%) (Auto) 1 % (0-3) Basophils (%) (Auto) 0 % (0-3) Neutrophils # (Auto) 8.2 x10^3uL (1.8-7.7) Lymphocytes # (Auto) 1.2 x10^3/uL (1.0-4.8) Monocytes # (Auto) 1.8 x10^3/uL (0.0-1.1) Eosinophils # (Auto) 0.1 x10^3/uL (0.0-0.7) Basophils # (Auto) 0.0 x10^3/uL (0.0-0.2) Sodium Level 138 mmol/L (136-145) Potassium Level 4.2 mmol/L (3.5-5.1) Chloride Level 103 mmol/L (98-107) Carbon Dioxide Level 25 mmol/L (21-32) Anion Gap 10 (6-14) Blood Urea Nitrogen 20 mg/dL (8-26) Creatinine 1.2 mg/dL (0.7-1.3) Estimated GFR (Cockcroft-Gault) 69.3 BUN/Creatinine Ratio 17 (6-20) Glucose Level 99 mg/dL (70-99) Calcium Level 8.7 mg/dL (8.5-10.1) Total Bilirubin 0.1 mg/dL (0.2-1.0) Aspartate Amino Transf (AST/SGOT) 24 U/L (15-37) Alanine Aminotransferase (ALT/SGPT) 20 U/L (16-63) Alkaline Phosphatase 93 U/L (46-116) Total Protein 6.2 g/dL (6.4-8.2) Albumin 2.3 g/dL (3.4-5.0) Albumin/Globulin Ratio 0.6 (1.0-1.7) Glucose (Fingerstick) 83 mg/dL (70-99) Allergies: Coded Allergies: I S O L A T I O N *CONTACT* (Verified Allergy, Unknown, 01/15/17) mrsa No Known Medication Allergies (Verified Allergy, Unknown, 01/15/17) Medications: Current Medications Medications (Trade) Dose Ordered Sig/Ash Route PRN Reason Start Time Stop Time Status Last Admin Dose Admin Linezolid 300 ml @ 300 mls/hr Q12HR IV 01/18/17 09:30 01/18/17 21:11 Iohexol (Omnipaque 240 Mg/ml) 30 ml 1X ONCE PO 01/18/17 10:00 01/18/17 10:01 DC 01/18/17 10:00 Ondansetron HCl (Zofran) 4 mg PRN Q6HRS PRN IV NAUSEA/VOMITING 01/18/17 23:15 01/18/17 23:29 Imaging: Imaging: CXR 01/14/17 IMPRESSION: No acute abnormality detected. CT A/P w/ oral contrast 01/18/17 Impression: 1. Trace bilateral pleural effusions and bibasilar dependent atelectasis. 2. Postop changes in the abdomen. No focal fluid collection or abscess is seen. There is no free air. No acute abnormality is identified. PE: GEN: NAD HEENT: Atraumatic, PERRL LUNGS: CTAB anteriorly HEART: RRR ABD: NABS, S/ND/NT, +urostomy +colostomy EXTREMITY: No edema SKIN: No rashes, no jaundice NEURO/PSYCH: A & O 3, flat A/P: A/P: Anemia, normocytic H/o colorectal cancer, bladder/prostate cancer -has colostomy and urostomy Fever, leukocytosis, UTI -- Will check anemia parameters and consider outpt endoscopy. Continue PPI. OMAR MERCEDES Jan 19, 2017 09:19
[2017-01-19] MEDS: MULTIVITAMIN with MINERAL TABLET. PO SCH (09:54)
[2017-01-19] MEDS: PARoxetine 10 MG TABLET PO SCH (09:54)
[2017-01-19] MEDS: THIAMINE 100 MG TABLET. PO SCH (09:54)
[2017-01-19] MEDS: hydroCHLOROthiazide 25 MG TABLET PO SCH (09:54)
[2017-01-19] MEDS: CHOLECALCIFEROL (VITAMIN D3) 1,000 UNIT TABLET PO SCH (09:54)
[2017-01-19] MEDS: DORZOLAMIDE 2% OPHTH SOLUTION 10ML BOTTLE. OU SCH ×2 (09:55→21:07)
[2017-01-19] MEDS: GLIMEPIRIDE 2 MG TABLET. PO SCH (09:55)
[2017-01-19] MEDS: metFORMIN 500 MG TABLET PO SCH ×2 (09:55→16:57)
[2017-01-19] MEDS: LISINOPRIL 20 MG TABLET PO SCH (09:55)
[2017-01-19] MEDS: BRIMONIDINE 0.2% OPHTH SOLUTION 5ML BOTTLE. OU SCH ×2 (09:56→21:07)
[2017-01-19 09:59] LABS: % SAT IRON 21 % (15-34); IRON,SERUM 30 ug/dL (65-175)
[2017-01-19 10:24] LABS: FOLATE 4.49 ng/ml (3.2-20.0)
[2017-01-19 11:00] VITALS: BP 142/63
[2017-01-19] MEDS: ENOXAPARIN 40 MG/0.4 ML SYRINGE. SQ SCH (12:17)
--- NOTE | 2017-01-19 14:56 | PDOC ---
Infectious Disease Note Subjective Subjective Feeling alright No fever last 24 hours. Appetite ok getting ready to walk ROS ROS GEN: Denies chills, sweats CV: Denies chest pain RESP: Denies shortness of air, cough GI: Denies n/v Vital Sign Vital Signs Vital Signs Date Time Temp Pulse Resp B/P (MAP) Pulse Ox O2 Delivery O2 Flow Rate FiO2 01/19/17 11:00 98.8 84 20 142/63 (89) 97 Room Air 98.8 Physical Exam PHYSICAL EXAM GENERAL: Sitting in the chair, relaxed appearance, LUNGS: Clear HEART: S1 and S2 ABD: Soft, NT, Ostomy & urostomy EXT: No edema, no cyanosis CHORAL TEACHER: Alert, responds appropriately SKIN: No rash IV: ok Labs Lab Laboratory Tests Test 01/18/17 17:08 01/18/17 20:47 01/19/17 05:20 01/19/17 07:31 Glucose (Fingerstick) 112 mg/dL (70-99) 105 mg/dL (70-99) 83 mg/dL (70-99) White Blood Count 11.4 x10^3/uL (4.0-11.0) Red Blood Count 2.48 x10^6/uL (4.30-5.70) Hemoglobin 7.7 g/dL (13.0-17.5) Hematocrit 23.9 % (39.0-53.0) Mean Corpuscular Volume 96 fL (79-100) Mean Corpuscular Hemoglobin 31 pg (25-35) Mean Corpuscular Hemoglobin Concent 32 g/dL (31-37) Red Cell Distribution Width 15.7 % (11.5-14.5) Platelet Count 336 x10^3/uL (140-400) Neutrophils (%) (Auto) 72 % (31-73) Lymphocytes (%) (Auto) 10 % (24-48) Monocytes (%) (Auto) 16 % (0-9) Eosinophils (%) (Auto) 1 % (0-3) Basophils (%) (Auto) 0 % (0-3) Neutrophils # (Auto) 8.2 x10^3uL (1.8-7.7) Lymphocytes # (Auto) 1.2 x10^3/uL (1.0-4.8) Monocytes # (Auto) 1.8 x10^3/uL (0.0-1.1) Eosinophils # (Auto) 0.1 x10^3/uL (0.0-0.7) Basophils # (Auto) 0.0 x10^3/uL (0.0-0.2) Reticulocyte Count (auto) 0.8 % (0.5-2.5) Sodium Level 138 mmol/L (136-145) Potassium Level 4.2 mmol/L (3.5-5.1) Chloride Level 103 mmol/L (98-107) Carbon Dioxide Level 25 mmol/L (21-32) Anion Gap 10 (6-14) Blood Urea Nitrogen 20 mg/dL (8-26) Creatinine 1.2 mg/dL (0.7-1.3) Estimated GFR (Cockcroft-Gault) 69.3 BUN/Creatinine Ratio 17 (6-20) Glucose Level 99 mg/dL (70-99) Calcium Level 8.7 mg/dL (8.5-10.1) Iron Level 30 ug/dL (65-175) Total Iron Binding Capacity 142 ug/dL (250-450) Iron Saturation 21 % (15-34) Total Bilirubin 0.1 mg/dL (0.2-1.0) Aspartate Amino Transf (AST/SGOT) 24 U/L (15-37) Alanine Aminotransferase (ALT/SGPT) 20 U/L (16-63) Alkaline Phosphatase 93 U/L (46-116) Total Protein 6.2 g/dL (6.4-8.2) Albumin 2.3 g/dL (3.4-5.0) Albumin/Globulin Ratio 0.6 (1.0-1.7) Vitamin B12 Level 320 pg/mL (247-911) Serum Folate 4.49 ng/ml (3.2-20.0) Test 01/19/17 11:38 Glucose (Fingerstick) 215 mg/dL (70-99) CT abd/pelvis Impression: 1. Trace bilateral pleural effusions and bibasilar dependent atelectasis. 2. Postop changes in the abdomen. No focal fluid collection or abscess is seen. There is no free air. No acute abnormality is identified. Micro BLOOD CULTURE Preliminary NO GROWTH AFTER 1 DAY URINE CULTURE RES 1 Final Citrobacter koseri Antibiotic RSLT#1 Amoxicillin/Clavulanic Acid S Cefepime S Ceftriaxone S Cefuroxime I Cephalothin S Ciprofloxacin R Ertapenem S Gentamicin S Imipenem S Levofloxacin I Nitrofurantoin S Piperacillin R Tetracycline S Tobramycin S Trimethoprim/Sulfa S Objective Assessment Fever Leukocytosis 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 FORTUNATO MRSA + screen Plan Plan of Care Cont Meropenem Cont Zyvox with + MRSA screen. avoid vanc with FORTUNATO. Procalcitonin 0.74 Sed rate >140 f/u cultures Attending Co-Sign The patient was seen and interviewed as well as examined at the bedside. The chart was reviewed. The case was discussed. Agree with the plan of care. meropenem for 5 more days d/c ok d/w ARCHIE Gross APRN Jan 19, 2017 14:55 STEPHANIE CLEANING MD Jan 19, 2017 15:33
[2017-01-19 15:00] VITALS: BP 136/56
[2017-01-19 20:56] VITALS: BP 148/69
[2017-01-19] MEDS: LATANOPROST 0.005% OPHTH SOLUTION 2.5ML BOTTLE. OU SCH (21:07)
[2017-01-19] MEDS: ATORVASTATIN CALCIUM 40 MG TABLET. PO SCH (21:07)
[2017-01-19 23:35] VITALS: BP 126/60
[2017-01-20 03:52] VITALS: BP 137/64
[2017-01-20] MEDS: MEROPENEM 500 MG in IV NORMAL SALINE 50ML 50 ML IV SCH ×2 (06:00→06:39)
[2017-01-20] MEDS: PANTOPRAZOLE 40 MG TABLET.DR. PO SCH (06:39)
[2017-01-20 07:00] VITALS: BP 151/72
[2017-01-20] MEDS: INSULIN ASPART 300 UNITS/3 ML INSULN.PEN SQ SCH ×2 (08:00→12:30)
[2017-01-20] MEDS: hydroCHLOROthiazide 25 MG TABLET PO SCH (08:15)
[2017-01-20] MEDS: CHOLECALCIFEROL (VITAMIN D3) 1,000 UNIT TABLET PO SCH (08:15)
[2017-01-20] MEDS: THIAMINE 100 MG TABLET. PO SCH (08:15)
[2017-01-20] MEDS: MULTIVITAMIN with MINERAL TABLET. PO SCH (08:15)
[2017-01-20] MEDS: PARoxetine 10 MG TABLET PO SCH (08:15)
[2017-01-20] MEDS: metFORMIN 500 MG TABLET PO SCH (08:15)
[2017-01-20] MEDS: GLIMEPIRIDE 2 MG TABLET. PO SCH (08:17)
[2017-01-20] MEDS: LISINOPRIL 20 MG TABLET PO SCH (08:17)
[2017-01-20] MEDS: BRIMONIDINE 0.2% OPHTH SOLUTION 5ML BOTTLE. OU SCH (08:18)
[2017-01-20] MEDS: DORZOLAMIDE 2% OPHTH SOLUTION 10ML BOTTLE. OU SCH (08:18)
--- NOTE | 2017-01-20 08:46 | PDOC ---
PROGRESS NOTES Subjective Subjective Missed progress note for Patient continue to remain stable. patient now afebrile for 24 hrs. Discussed D/ C with ID patient will need iv anti bx for 5 more days. this can be done at long-term. Plan for IV access and transfer made but Prov place cannot accept until 01/20/17. Patient anemia stable and slightly improved will hold off on transfusion and monitor nutrition and Hbg at SNU. Continue PT/OT efforts and proceed with plans for final placement at assisted living or home with 24 hrs care once SNU care completed Objective Objective Vital Signs Date Time Temp Pulse Resp B/P (MAP) Pulse Ox O2 Delivery O2 Flow Rate FiO2 01/20/17 08: 78 151/72 01/20/17 07:00 99.5 20 98 Room Air 99.5 Intake and Output 01/20/17 07:00 Intake Total 0 ml Output Total 1750 ml Balance -1750 ml Intake Oral 0 ml Output Urine Total 1050 ml Stool Total 700 ml Physical Exam Abdomen: Normal bowel sounds Heart: Regular rate Extremities: No edema General: Alert Lungs: Clear to auscultation Assessment Assessment 1. Sepsis. 2. Urinary tract infection-Citrobacter koseri 3. Acute on chronic renal failure. 4. Anemia. 5. Longstanding ileostomy and colostomy. 6. Depression 7. Debilitation 8. moderate protein malnutrition Plan Plan of Care Add FESO4 increase paxil transfer to SNU 01/20/17 Comment Review of Relevant I have reviewed the following items cristiano (where applicable) has been applied. Labs Laboratory Tests Test 01/18/17 09:50 01/18/17 12:01 01/18/17 17:08 01/18/17 20:47 White Blood Count 11.4 x10^3/uL (4.0-11.0) Red Blood Count 2.34 x10^6/uL (4.30-5.70) Hemoglobin 7.2 g/dL (13.0-17.5) Hematocrit 22.2 % (39.0-53.0) Mean Corpuscular Volume 95 fL (79-100) Mean Corpuscular Hemoglobin 31 pg (25-35) Mean Corpuscular Hemoglobin Concent 33 g/dL (31-37) Red Cell Distribution Width 16.0 % (11.5-14.5) Platelet Count 313 x10^3/uL (140-400) Neutrophils (%) (Auto) 71 % (31-73) Lymphocytes (%) (Auto) 9 % (24-48) Monocytes (%) (Auto) 18 % (0-9) Eosinophils (%) (Auto) 1 % (0-3) Basophils (%) (Auto) 1 % (0-3) Neutrophils # (Auto) 8.1 x10^3uL (1.8-7.7) Lymphocytes # (Auto) 1.0 x10^3/uL (1.0-4.8) Monocytes # (Auto) 2.1 x10^3/uL (0.0-1.1) Eosinophils # (Auto) 0.1 x10^3/uL (0.0-0.7) Basophils # (Auto) 0.1 x10^3/uL (0.0-0.2) Erythrocyte Sedimentation Rate > 140 (0-15) Sodium Level 138 mmol/L (136-145) Potassium Level 3.6 mmol/L (3.5-5.1) Chloride Level 105 mmol/L (98-107) Carbon Dioxide Level 26 mmol/L (21-32) Anion Gap 7 (6-14) Blood Urea Nitrogen 20 mg/dL (8-26) Creatinine 1.4 mg/dL (0.7-1.3) Estimated GFR (Cockcroft-Gault) 58.0 Glucose Level 226 mg/dL (70-99) Calcium Level 8.7 mg/dL (8.5-10.1) Procalcitonin 0.74 ng/mL (0.00-0.10) Glucose (Fingerstick) 180 mg/dL (70-99) 112 mg/dL (70-99) 105 mg/dL (70-99) Test 01/19/17 05:20 01/19/17 07:31 01/19/17 11:38 01/19/17 16:55 White Blood Count 11.4 x10^3/uL (4.0-11.0) Red Blood Count 2.48 x10^6/uL (4.30-5.70) Hemoglobin 7.7 g/dL (13.0-17.5) Hematocrit 23.9 % (39.0-53.0) Mean Corpuscular Volume 96 fL (79-100) Mean Corpuscular Hemoglobin 31 pg (25-35) Mean Corpuscular Hemoglobin Concent 32 g/dL (31-37) Red Cell Distribution Width 15.7 % (11.5-14.5) Platelet Count 336 x10^3/uL (140-400) Neutrophils (%) (Auto) 72 % (31-73) Lymphocytes (%) (Auto) 10 % (24-48) Monocytes (%) (Auto) 16 % (0-9) Eosinophils (%) (Auto) 1 % (0-3) Basophils (%) (Auto) 0 % (0-3) Neutrophils # (Auto) 8.2 x10^3uL (1.8-7.7) Lymphocytes # (Auto) 1.2 x10^3/uL (1.0-4.8) Monocytes # (Auto) 1.8 x10^3/uL (0.0-1.1) Eosinophils # (Auto) 0.1 x10^3/uL (0.0-0.7) Basophils # (Auto) 0.0 x10^3/uL (0.0-0.2) Reticulocyte Count (auto) 0.8 % (0.5-2.5) Sodium Level 138 mmol/L (136-145) Potassium Level 4.2 mmol/L (3.5-5.1) Chloride Level 103 mmol/L (98-107) Carbon Dioxide Level 25 mmol/L (21-32) Anion Gap 10 (6-14) Blood Urea Nitrogen 20 mg/dL (8-26) Creatinine 1.2 mg/dL (0.7-1.3) Estimated GFR (Cockcroft-Gault) 69.3 BUN/Creatinine Ratio 17 (6-20) Glucose Level 99 mg/dL (70-99) Calcium Level 8.7 mg/dL (8.5-10.1) Iron Level 30 ug/dL (65-175) Total Iron Binding Capacity 142 ug/dL (250-450) Iron Saturation 21 % (15-34) Total Bilirubin 0.1 mg/dL (0.2-1.0) Aspartate Amino Transf (AST/SGOT) 24 U/L (15-37) Alanine Aminotransferase (ALT/SGPT) 20 U/L (16-63) Alkaline Phosphatase 93 U/L (46-116) Total Protein 6.2 g/dL (6.4-8.2) Albumin 2.3 g/dL (3.4-5.0) Albumin/Globulin Ratio 0.6 (1.0-1.7) Vitamin B12 Level 320 pg/mL (247-911) Serum Folate 4.49 ng/ml (3.2-20.0) Glucose (Fingerstick) 83 mg/dL (70-99) 215 mg/dL (70-99) 76 mg/dL (70-99) Test 01/19/17 21:01 01/19/17 21:17 01/19/17 21:50 01/20/17 07:19 Glucose (Fingerstick) 64 mg/dL (70-99) 64 mg/dL (70-99) 93 mg/dL (70-99) 112 mg/dL (70-99) Laboratory Tests Test 01/19/17 11:38 01/19/17 16:55 01/19/17 21:01 01/19/17 21:17 Glucose (Fingerstick) 215 mg/dL (70-99) 76 mg/dL (70-99) 64 mg/dL (70-99) 64 mg/dL (70-99) Test 01/19/17 21:50 01/20/17 07:19 Glucose (Fingerstick) 93 mg/dL (70-99) 112 mg/dL (70-99) Microbiology 01/18/17 Blood Culture - Preliminary, Resulted NO GROWTH AFTER 1 DAY 01/14/17 Urine Culture - Final, Complete 01/14/17 Urine Culture Result 1 (HERBERT) - Final, Complete 01/14/17 Antimicrobic Susceptibility - Final, Complete Medications Current Medications Acetaminophen (Tylenol) 1,000 mg 1X ONCE PO Last administered on 01/14/17 17: 21; Start 01/14/17 at 17:00; Stop 01/14/17 at 17:01; Status DC Sodium Chloride 1,000 ml @ 100 mls/hr Q10H IV Last administered on 01/14/17 20:08; Start 01/14/17 at 17:00; Stop 01/15/17 at 02:59; Status DC Vancomycin HCl (Vanco Per Pharmacy) 1 each PRN DAILY PRN MC SEE COMMENTS Last administered on 01/15/17 14:56; Start 01/14/17 at 17:45; Stop 01/16/17 at 10:54 ; Status DC Piperacillin Sod/ Tazobactam Sod (Zosyn Per Pharmacy) 1 each PRN DAILY PRN MC SEE COMMENTS; Start 01/14/17 at 17:45; Stop 01/17/17 at 09:41; Status DC Sodium Chloride 1,000 ml @ 1,000 mls/hr 1X ONCE IV Last administered on 18:00; Start 01/14/17 at 18:00; Stop 01/14/17 at 18:59; Status DC Vancomycin HCl 1.5 gm/Sodium Chloride 500 ml @ 250 mls/hr 1X ONCE IV Last administered on 01/14/17 20:09; Start 01/14/17 at 18:00; Stop 01/14/17 at 19:59 ; Status DC Piperacillin Sod/ Tazobactam Sod 3.375 gm/Sodium Chloride 50 ml @ 100 mls/hr 1X ONCE IV Last administered on 01/14/17 18:06; Start 01/14/17 at 18:00; Stop 01/14/17 at 18:29; Status DC Piperacillin Sod/ Tazobactam Sod 2.25 gm/Sodium Chloride 50 ml @ 100 mls/hr Q6HRS IV Last administered on 01/17/17 06:31; Start 01/15/17 at 00:00; Stop at 09:41; Status DC Ondansetron HCl (Zofran) 4 mg PRN Q8HRS PRN IV NAUSEA/VOMITING; Start 01/14/17 at 18:15; Stop 01/15/17 at 18:14; Status DC Acetaminophen (Tylenol) 650 mg PRN Q4HRS PRN PO FEVER; Start 01/14/17 at 18:15 ; Stop 01/15/17 at 18:14; Status DC Insulin Aspart (NovoLOG) 0-5 UNITS TIDWMEALS SQ Last administered on 01/19/17 12:25; Start 01/15/17 at 08:00 Dextrose (Dextrose 50%-Water Syringe) 12.5 gm PRN Q15MIN PRN IV SEE COMMENTS; Start 01/14/17 at 18:15 Vancomycin HCl 1 gm/Sodium Chloride 250 ml @ 250 mls/hr Q24H IV Last administered on 01/15/17 20:28; Start 01/15/17 at 20:00; Stop 01/16/17 at 10:54 ; Status DC Vancomycin HCl 1 each 1X ONCE MC ; Start 01/16/17 at 19:30; Stop 01/16/17 at 19 :30; Status DC Vitamin D (Vitamin D3) 1,000 unit DAILY PO Last administered on 01/20/17 08:15 ; Start 01/15/17 at 13:00 Diltiazem HCl (Cardizem 24hr Cd) 240 mg DAILY PO Last administered on 01/20/17 08:17; Start 01/15/17 at 13:00 Dorzolamide HCl (Trusopt) 1 drop BID OU Last administered on 01/20/17 08:18; Start 01/15/17 at 21:00 Glimepiride (Amaryl) 2 mg DAILY PO Last administered on 01/20/17 08:17; Start 01/15/17 at 13:00 Hydrochlorothiazide (Hydrodiuril) 25 mg DAILY PO Last administered on 01/20/17 08:15; Start 01/15/17 at 13:00 Latanoprost (Xalatan) 1 drop HS OU Last administered on 01/19/17 21:07; Start 01/15/17 at 21:00 Lisinopril (Prinivil) 20 mg DAILY PO Last administered on 01/20/17 08:17; Start 01/15/17 at 13:00 Metformin HCl (Glucophage) 500 mg BIDWMEALS PO Last administered on 01/20/17 08 :15; Start 01/15/17 at 17:00 Paroxetine HCl (Paxil) 10 mg DAILY PO Last administered on 01/18/17 09:14; Start 01/15/17 at 13:00; Stop 01/19/17 at 08:44; Status DC Brimonidine Tartrate (Alphagan) 2 drop BID OU Last administered on 01/20/17 08: 18; Start 01/15/17 at 21:00 Multivitamins (Thera M Plus) 1 tab DAILY PO Last administered on 01/20/17 08:15 ; Start 01/15/17 at 13:00 Pantoprazole Sodium (Protonix) 40 mg DAILYAC PO Last administered on 01/20/17 06:39; Start 01/15/17 at 16:30 Atorvastatin Calcium (Lipitor) 40 mg QHS PO Last administered on 01/19/17 21: 07; Start 01/15/17 at 21:00 Thiamine Mononitrate (Vitamin B-1) 100 mg DAILY PO Last administered on 08:15; Start 01/15/17 at 13:00 Enoxaparin Sodium (Lovenox 40mg Syringe) 40 mg Q24H SQ Last administered on 12:17; Start 01/15/17 at 13:00 Acetaminophen (Tylenol) 325 mg PRN Q6HRS PRN PO MILD PAIN / TEMP; Start at 19:45 Acetaminophen (Tylenol) 650 mg PRN Q6HRS PRN PO FEVER > 101 Last administered on 01/18/17 09:14; Start 01/16/17 at 19:45 Meropenem 500 mg/ Sodium Chloride 50 ml @ 100 mls/hr Q6HRS IV Last administered on 01/19/17 12:16; Start 01/17/17 at 10:30; Stop 01/19/17 at 15:39 ; Status DC Linezolid 300 ml @ 300 mls/hr Q12HR IV Last administered on 01/19/17 09:52; Start 01/18/17 at 09:30; Stop 01/19/17 at 15:39; Status DC Iohexol (Omnipaque 240 Mg/ml) 30 ml 1X ONCE PO Last administered on 01/18/17 10:00; Start 01/18/17 at 10:00; Stop 01/18/17 at 10:01; Status DC Clonidine HCl (Catapres) 0.1 mg PRN Q1HR PRN PO HYPERTENSION, SEE COMMENTS; Start 01/18/17 at 18:15 Ondansetron HCl (Zofran) 4 mg PRN Q6HRS PRN IV NAUSEA/VOMITING Last administered on 01/18/17 23:29; Start 01/18/17 at 23:15 Paroxetine HCl (Paxil) 20 mg DAILY PO Last administered on 01/20/17 08:15; Start 01/19/17 at 09:00 Meropenem 500 mg/ Sodium Chloride 50 ml @ 100 mls/hr Q8HRS IV Last administered on 01/20/17t 06:39; Start 01/19/17 at 22:00 Active Scripts Active Reported Dorzolamide Hcl 10 Ml Drops 1 Drop EACHEYE BID Crestor (Rosuvastatin Calcium) 10 Mg Tablet 10 Mg PO HS Latanoprost 2.5 Ml Drops 1 Drop OP HS Vitamin D3 (Cholecalciferol (Vitamin D3)) 1,000 Unit Tablet 1,000 Unit PO DAILY B-1 (Thiamine HCl) 100 Mg Tablet 100 Mg PO DAILY Alphagan P (Brimonidine Tartrate) 5 Ml Drops 2 Drop EACHEYE BID Omeprazole 20 Mg Capsule.dr 20 Mg PO DAILY Lisinopril 20 Mg Tablet 20 Mg PO DAILY Paxil (Paroxetine Hcl) 10 Mg Tablet 10 Mg PO DAILY Multivitamins (Multivitamin) 1 Each Tablet 1 Each PO DAILY Diltiazem 24HR Cd (Diltiazem Hcl) 120 Mg Cap.er.24h 240 Mg PO DAILY Metformin Hcl 500 Mg Tablet 500 Mg PO BIDWMEALS Glimepiride 2 Mg Tablet 2 Mg PO DAILY Hydrochlorothiazide Tablet (Hydrochlorothiazide) 25 Mg Tablet 25 Mg PO DAILY Vitals/I & O Vital Sign - Last 24 Hours 01/19/17 01/19/17 01/19/17 01/19/17 09:54 09:55 11:00 15:00 Temp 98.8 99.7 98.8 99.7 Pulse 83 83 84 71 Resp 20 20 B/P (MAP) 162/75 162/75 142/63 (89) 136/56 (82) Pulse Ox 97 99 O2 Delivery Room Air Room Air 01/19/17 01/19/17 01/19/17 01/20/17 20:00 20:56 23:35 03:52 Temp 98.9 98.8 99.5 98.9 98.8 99.5 Pulse 86 83 85 Resp 18 18 20 B/P (MAP) 148/69 (95) 126/60 (82) 137/64 (88) Pulse Ox 97 99 O2 Delivery Room Air Room Air Room Air Room Air 01/20/17 01/20/17 01/20/17 07:00 08:17 08:17 Temp 99.5 99.5 Pulse 87 78 78 Resp 20 B/P (MAP) 151/72 (98) 151/72 151/72 Pulse Ox 98 O2 Delivery Room Air Intake and Output 01/19/17 01/19/17 01/20/17 15:00 23:00 07:00 Intake Total 0 ml Output Total 850 ml 900 ml Balance -850 ml -900 ml KRISTINA LEIGH MD Jan 20, 2017 08:46
--- NOTE | 2017-01-20 10:37 | PDOC3 ---
Discharge Summary* Date of Admission: Jan 14, 2017 Date of Discharge: Jan 20, 2017 Admitting Diagnosis Sepsis 2/2 UTI Problems: Final Diagnosis Sepsis 2/2 UTI 2/2 Citrobacter koseri, Acute on chronic renal failure, Anemia, Longstanding ileostomy and colostomy, Depression, Debilitation, PEM- moderate CONSULTS Infectious Disease, GI Procedures CXR- WNL CT Abdomen/Pelvis- trace bilateral pleural effusions, post operative changes in abdomen Brief Hospital Course DISCHARGE PHYSICAL EXAM GEN: NAD, Alert, oriented to self HEENT: MMM, EOMI, no scleral icterus/injection Cardiac: RRR, no M/R/G Lungs: CTAB, regular breathing rate and effort Ext: no erythema/edema LE bilaterally, PICC in place right arm Neuro: CN2-12 GI Pt is a 86yo AAM admitted for sepsis 2/2 UTI 1. Sepsis- resolved 2. Urinary tract infection- ID following. Pt currently receiving Meropenem x5 more days. 3. Acute on chronic renal failure. 4. Anemia- recheck Hb in 1 week. Iron studies show iron deficiency and anemia of chronic kidney disease. Pt started on iron replacement 5. Longstanding ileostomy and colostomy. 6. Depression- Paroxetine increased to 20mg 7. Debilitation 8. moderate protein malnutrition 9. HTN- BP moderately controlled with Lisionpril 20mg, HCTZ 25mg and Diltiazem 240mg. Will stop Clonidine on discharge 10. DM2- BS moderately controlled with Metformin 500mg BID, Glimepiride 2mg and SSI Disposition/Orders: D/C to Another Facility CONDITION AT DISCHARGE: Improved, Stable Diet: 2 gr sodium, Consistent Carbohydrate Scheduled Brimonidine Tartrate (Alphagan P), 2 DROP EACHEYE BID, (Reported) Cholecalciferol (Vitamin D3) (Vitamin D3), 1,000 UNIT PO DAILY, (Reported) Diltiazem Hcl (Diltiazem 24HR Cd), 240 MG PO DAILY, (Reported) Dorzolamide Hcl (Dorzolamide Hcl), 1 DROP EACHEYE BID, (Reported) Glimepiride (Glimepiride), 2 MG PO DAILY, (Reported) Hydrochlorothiazide (Hydrochlorothiazide Tablet ), 25 MG PO DAILY, (Reported) Latanoprost (Latanoprost), 1 DROP OP HS, (Reported) Lisinopril (Lisinopril), 20 MG PO DAILY, (Reported) Metformin Hcl (Metformin Hcl), 500 MG PO BIDWMEALS, (Reported) Multivitamin (Multivitamins), 1 EACH PO DAILY, (Reported) Omeprazole (Omeprazole), 20 MG PO DAILY, (Reported) Paroxetine Hcl (Paxil), 10 MG PO DAILY, (Reported) Rosuvastatin Calcium (Crestor), 10 MG PO HS, (Reported) Thiamine HCl (B-1), 100 MG PO DAILY, (Reported) PCP F/u with Dr. Whaley within 2 weeks of discharge from SNF Time Spent Total time spent with patient [] minutes for coordination of care, counseling, and education. RENETTA HEAD MD Jan 20, 2017 10:37
[2017-01-20 11:00] VITALS: BP 143/62
[2017-01-20] MEDS ORDERED: FERROUS SULFATE 325 MG TABLET. PO SCH (12:00)
== END 2017-01-20 13:00 | DRG 871 ==
LOC: ER 16:28 → 4 NORTH 17:39
PROVIDERS: ADMIT Family Medicine; ATTEND Family Medicine
DX: A41.9 Sepsis, unspecified organism (principal); G93.41 Metabolic encephalopathy; E44.0 Moderate protein-calorie malnutrition; N12 Tubulo-interstitial nephritis, not specified as acute or chronic; N17.9 Acute kidney failure, unspecified; E11.22 Type 2 diabetes mellitus with diabetic chronic kidney disease; D50.9 Iron deficiency anemia, unspecified; D63.1 Anemia in chronic kidney disease; E78.5 Hyperlipidemia, unspecified; F32.9 Major depressive disorder, single episode, unspecified; H40.9 Unspecified glaucoma; I12.9 Hypertensive chronic kidney disease with stage 1 through stage 4 chronic kidney disease, or unspecified chronic kidney disease; N18.3 Chronic kidney disease, stage 3 (moderate); Z82.3 Family history of stroke; Z85.048 Personal history of other malignant neoplasm of rectum, rectosigmoid junction, and anus; Z68.27 Body mass index [BMI] 27.0-27.9, adult; Z85.46 Personal history of malignant neoplasm of prostate; Z85.51 Personal history of malignant neoplasm of bladder; Z93.3 Colostomy status; Z90.49 Acquired absence of other specified parts of digestive tract; Z88.8 Allergy status to other drugs, medicaments and biological substances
CPT/HCPCS: 36415; 71010; 74176; 80048; 80053; 81001; 82607; 82746; 82962; 83540; 83550; 83605; 83880; 84145; 84484; 85007; 85027; 85045; 85610; 85651; 85730; 87040; 87086; 87186; 87641; 93005; 96374; J1650; J1815; J2020; J2185; J2405; J2543; J3370; J7030; J7040; J7050; Q9966; 97110; 97116; 97530; 97535; 99285-25

== ENCOUNTER 2017-02-20 12:00 | Inpatient (IN) | payer MEDICARE, OTHER ==
[~2017-02-20] VITALS: Ht 157.5 cm; Wt 69.6 kg
[~2017-02-20 12:00] MED LIST: BRIM5DRO3 EACHEYE; CHOL10003 PO; CRESTOR10 MG PO; DILT120C80 PO; DORZ10DR3 EACHEYE; GLIM2TAB2 PO; HYDR25TA9 PO; LATA2.5D3 OP; LISI-334 PO; METF500T4 PO; MULT1TAB52 PO; OMEP20CA9 PO; PARO10TA57 PO; THIA100T43 PO
[2017-02-20] MEDS ORDERED: IV NORMAL SALINE 1000ML BAG 1,000 ML IV ONE (12:30)
--- NOTE | 2017-02-20 12:48 | EKG ---
[facility] [address] [place] [address] Test Date: 2017-02-20 Test Time: 12:00:15 Pat Name: TA MEDINA Department: Room: Gender: M [employer]: : 1930 Requested By: KATHRINE POE Order Number: [id number] Reading MD: Ari Gallegos Measurements Intervals [place] Rate: 99 P: 46 NV: 140 QRS: 33 QRSD: 80 T: 24 QT: 344 QTc: 447 Interpretive Statements SINUS RHYTHM QRS(T) CONTOUR ABNORMALITY RI6.01 Unconfirmed report Compared to ECG 01/14/2017 16:41:24 Sinus tachycardia no longer present T-wave abnormality no longer present Possible ischemia no longer present Electronically Signed On 02-20-2017 17:21:39 CDT by Ari Gallegos
[2017-02-20 13:02] LABS: BASO # 0.1 x10^3/uL (0.0-0.2); BASO % 1 % (0-3); EOS % 0 % (0-3); HEMATOCRIT 24.5 % (39.0-53.0); LYMPH # 1.1 x10^3/uL (1.0-4.8); LYMPH % 8 % (24-48); MEAN CORPUSCULAR HEMOGLOBIN 31 pg (25-35); MEAN CORPUSCULAR HGB CONC 33 g/dL (31-37); MEAN CORPUSCULAR VOLUME 97 fL (79-100); MONO % 19 % (0-9); NEUT % 72 % (31-73); PLATELET COUNT 385 x10^3/uL (140-400); RED BLOOD COUNT 2.54 x10^6/uL (4.30-5.70); RED CELL DISTRIBUTION WIDTH 15.4 % (11.5-14.5); WHITE BLOOD COUNT 13.9 x10^3/uL (4.0-11.0)
[2017-02-20 13:13] LABS: INR 1.2 (0.8-1.1); PROTHROMBIN TIME PATIENT 14.7 SEC (11.7-14.0)
--- NOTE | 2017-02-20 13:15 | RAD ---
Portable chest, 02/20/2017: History: Shortness of breath Comparison is made to a study from 01/14/2017. The heart size and pulmonary vascularity are normal. There is calcific plaquing of the aorta. No pulmonary infiltrates are seen. There is no evidence of pleural fluid. IMPRESSION: No acute cardiopulmonary abnormality is detected.
[2017-02-20 13:28] LABS: CALCIUM 9.9 mg/dL (8.5-10.1); CREATININE 2.2 mg/dL (0.7-1.3); GFR 34.4; POTASSIUM 3.8 mmol/L (3.5-5.1)
[2017-02-20 13:32] LABS: BILIRUBIN,URINE NEGATIVE (NEG); GLUCOSE,URINE NEGATIVE (NEG); NITRITE,URINE NEGATIVE (NEG); PROTEIN,URINE 30 mg/dL (NEG-TRACE); UROBILINOGEN,URINE 0.2 mg/dL (0.2 mg/dL)
[2017-02-20 13:33] LABS: ALBUMIN 2.5 g/dL (3.4-5.0); ALBUMIN/GLOBULIN RATIO 0.4 (1.0-1.7); MAGNESIUM 1.8 mg/dL (1.8-2.4); TOTAL BILIRUBIN 0.1 mg/dL (0.2-1.0); TOTAL PROTEIN 8.1 g/dL (6.4-8.2)
[2017-02-20 13:54] LABS: RBC,URINE 0 /HPF (0-2)
[2017-02-20 13:55] LABS: BACTERIA,URINE MANY /HPF (0-FEW)
[2017-02-20 13:59] LABS: PLT ESTIMATE ADEQUATE (ADEQUATE)
[2017-02-20] MEDS: IV NORMAL SALINE 1000ML BAG 1,000 ML IV SCH (14:00)
[2017-02-20] MEDS ORDERED: ONDANSETRON PF 4 MG/2 ML VIAL. IV PRN (14:15)
--- NOTE | 2017-02-20 14:20 | PHYS DOC ---
Past Medical History Past Medical History: Anemia, Cancer, Diabetes-Type II, Glaucoma, Hypertension , Renal Disease Past Surgical History: Cancer Surgery, Colectomy, TURP, Other Additional Past Surgical Histo: COLOSTOMY Alcohol Use: None Drug Use: None Adult General Chief Complaint Chief Complaint: RAPID HEART RATE HPI HPI Patient is a 87 year old male presenting to the emergency department from [facility] for evaluation of increased heart rate. He has not been eating or drinking and they suspect that he is dehydrated. Patient denies any pain to me and daughter is present who says that he is mostly at his baseline except he has not been eating or drinking. Review of Systems Review of Systems Constitutional: Denies fever or chills [] Eyes: Denies change in visual acuity, redness, or eye pain [] HENT: Denies nasal congestion or sore throat [] Respiratory: Denies cough or shortness of breath [] Cardiovascular: No additional information not addressed in HPI [] GI: Denies abdominal pain, nausea, vomiting, bloody stools or diarrhea [] : Denies dysuria or hematuria [] Musculoskeletal: Denies back pain or joint pain [] Integument: Denies rash or skin lesions [] Neurologic: Denies headache, focal weakness or sensory changes [] Current Medications Current Medications Current Medications Medications (Trade) Dose Ordered Sig/Ash Start Time Stop Time Status Last Admin Dose Admin Ondansetron HCl (Zofran) 4 mg PRN Q8HRS PRN 02/20/17 14:15 02/21/17 14:14 Sodium Chloride 1,000 ml @ 75 mls/hr [id number] 02/20/17 14:04 02/21/17 14:03 Allergies Allergies Allergies Coded Allergies Type Severity Reaction Last Updated Verified I S O L A T I O N *CONTACT* Allergy Unknown 02/06/17 Yes No Known Medication Allergies Allergy Unknown 02/06/17 Yes Physical Exam Physical Exam Constitutional: Pale and chronically ill-appearing HENT: Normocephalic, atraumatic, bilateral external ears normal, oropharynx moist, no oral exudates, nose normal. [] Eyes: PERRLA, EOMI, conjunctiva pale, no discharge. [] Neck: Normal range of motion, no tenderness, supple, no stridor. [] Cardiovascular:Heart rate regular but tachycardic at 105 Lungs & Thorax: Bilateral breath sounds clear to auscultation [] Abdomen: Bowel sounds normal, soft, no tenderness, no masses, no pulsatile masses. [] Skin: Warm, dry, no erythema, no rash. [] Back: No tenderness, no CVA tenderness. [] Extremities: No tenderness, no cyanosis, no clubbing, ROM intact, no edema. [] Neurologic: Alert and oriented X 3, normal motor function, normal sensory function, no focal deficits noted. [] Current Patient Data Vital Signs Vital Signs Date Time Temp Pulse Resp B/P (MAP) Pulse Ox O2 Delivery O2 Flow Rate FiO2 02/20/17 12:38 68 28 142/86 (104) 98 Room Air 02/20/17 12:00 97.8 97.8 Lab Values Laboratory Tests Test 02/20/17 12:51 02/20/17 13:22 White Blood Count 13.9 x10^3/uL (4.0-11.0) H Red Blood Count 2.54 x10^6/uL (4.30-5.70) L Hemoglobin 8.0 g/dL (13.0-17.5) L Hematocrit 24.5 % (39.0-53.0) L Mean Corpuscular Volume 97 fL (79-100) Mean Corpuscular Hemoglobin 31 pg (25-35) Mean Corpuscular Hemoglobin Concent 33 g/dL (31-37) Red Cell Distribution Width 15.4 % (11.5-14.5) H Platelet Count 385 x10^3/uL (140-400) Neutrophils (%) (Auto) 72 % (31-73) Lymphocytes (%) (Auto) 8 % (24-48) L Monocytes (%) (Auto) 19 % (0-9) H Eosinophils (%) (Auto) 0 % (0-3) Basophils (%) (Auto) 1 % (0-3) Neutrophils # (Auto) 10.0 x10^3uL (1.8-7.7) H Lymphocytes # (Auto) 1.1 x10^3/uL (1.0-4.8) Monocytes # (Auto) 2.6 x10^3/uL (0.0-1.1) H Eosinophils # (Auto) 0.0 x10^3/uL (0.0-0.7) Basophils # (Auto) 0.1 x10^3/uL (0.0-0.2) Segmented Neutrophils % 79 % (35-66) H Lymphocytes % 9 % (24-48) L Monocytes % 12 % (0-10) H Platelet Estimate Adequate (ADEQUATE) Prothrombin Time 14.7 SEC (11.7-14.0) H Prothrombin Time INR 1.2 (0.8-1.1) H PTT 38 SEC (24-38) Sodium Level 138 mmol/L (136-145) Potassium Level 3.8 mmol/L (3.5-5.1) Chloride Level 102 mmol/L (98-107) Carbon Dioxide Level 21 mmol/L (21-32) Anion Gap 15 (6-14) H Blood Urea Nitrogen 57 mg/dL (8-26) H Creatinine 2.2 mg/dL (0.7-1.3) H Estimated GFR (Cockcroft-Gault) 34.4 BUN/Creatinine Ratio 26 (6-20) H Glucose Level 261 mg/dL (70-99) H Lactic Acid Level 2.6 mmol/L (0.4-2.0) H Calcium Level 9.9 mg/dL (8.5-10.1) Magnesium Level 1.8 mg/dL (1.8-2.4) Total Bilirubin 0.1 mg/dL (0.2-1.0) L Aspartate Amino Transferase (AST) 29 U/L (15-37) Alanine Aminotransferase (ALT) 24 U/L (16-63) Alkaline Phosphatase 107 U/L (46-116) Creatine Kinase 22 U/L (39-308) L Troponin I Quantitative < 0.017 ng/mL (0.000-0.055) IJ-Aqk-M-Type Natriuretic Peptide 687 pg/mL (0-449) H Total Protein 8.1 g/dL (6.4-8.2) Albumin 2.5 g/dL (3.4-5.0) L Albumin/Globulin Ratio 0.4 (1.0-1.7) L Lipase 124 U/L (73-393) Thyroid Stimulating Hormone (TSH) 1.167 uIU/mL (0.358-3.74) Urine Collection Type Unknown Urine Color Yellow Urine Clarity Cloudy Urine pH 6.0 Urine Specific [place] 1.015 Urine Protein 30 mg/dL (NEG-TRACE) Urine Glucose (UA) Negative mg/dL (NEG) Urine Ketones (Stick) Negative mg/dL (NEG) Urine Blood Negative (NEG) Urine Nitrite Negative (NEG) Urine Bilirubin Negative (NEG) Urine Urobilinogen Dipstick 0.2 mg/dL (0.2 mg/dL) Urine Leukocyte Esterase Small (NEG) Urine RBC 0 /HPF (0-2) Urine WBC 11-20 /HPF (0-4) Urine Bacteria Many /HPF (0-FEW) Urine Mucus Mod /LPF Laboratory Tests 02/20/17 12:51 Laboratory Tests 02/20/17 12:51 EKG EKG [] Radiology/Procedures Radiology/Procedures Portable chest, 02/20/2017: History: Shortness of breath Comparison is made to a study from 01/14/2017. The heart size and pulmonary vascularity are normal. There is calcific plaquing of the aorta. No pulmonary infiltrates are seen. There is no evidence of pleural fluid. IMPRESSION: No acute cardiopulmonary abnormality is detected. DICTATED and SIGNED BY: KINDRA ROMERO MD DATE: 02/20/17 1312 Course & Med Decision Making Course & Med Decision Making Given patient is dehydrated and not eating or drinking on his own he will require admission for further observation and treatment. Dragon Disclaimer Dragon Disclaimer This electronic medical record was generated, in whole or in part, using a voice recognition dictation system. Departure Departure Impression: Primary Impression: Renal insufficiency Additional Impressions: Dehydration Anemia Disposition: ADMITTED INPATIENT Admitting Physician: Javier Whaley Condition: STABLE Referrals: JAVIER WHALEY MD (PCP) Problem Qualifiers KATHRINE POE DO Feb 20, 2017 14:20
--- NOTE | 2017-02-20 15:05 | ACF ---
Admit Criteria Forms Admit Criteria Forms Admit Criteria Forms RENAL FAILURE, ACUTE Clinical Indications for Admission to Inpatient Care ( Place 'X' for any and all applicable criteria): Admission is indicated for ALL (if I & II) or III of the following [A](2)(3)(4)( 5)(6)(7): [ ]I. Acute renal failure as indicated by ANY ONE of the following: [ ]a) A 3-fold rise in serum creatinine from baseline [ ]b) Serum creatinine greater than 4 mg/dL (354 micromoles/L) with an acute rise greater than 0.5 mg/dL (44.2 micromoles/L) [ ]c) Reduction of more than 75% in estimated glomerular filtration rate from baseline [ ]d) Estimated glomerular filtration rate less than 35 mL/min/1.73m2 (0.59mL/sec/1.73m2)in a child up to 18 years of age [ ]e) Anuria indicated by ALL of the following: [ ]i) Adequate volume status [ ]ii) Cessation of urine output indicated by ANY ONE of the following: [ ]1) Urine output less than 0.3 mL/kg/hr for 24 hours [ ]2) Anuria (urine output less than 0.1 mL/kg/ hr) for 12 hours [ ] II. Renal failure cannot be managed in an outpatient setting or observational care setting as indicating by ANY ONE of the following: [ ]a) Altered mental status that is severe or persistent [ ]b) Volume overload or Respiratory distress (eg, clinically significant pulmonary edema) that is severe or persistent [ ]c) Cardiac arrhythmias of immediate concern [ ]d) Hemodynamic instability [ ]e) Clinically significant electrolyte abnormality that requires inpatient care (eg, hyperkalemia with severe ECG findings)[B] [ ]f) Clinically significant metabolic abnormality (eg, acidosis) that is severe or persistent [ ]g) Acute treatment of renal failure (eg, renal replacement therapy) not feasible or appropriate in observational care setting [ ]h) Clinical situation too unstable or uncertain (eg, inadequate urine output, ongoing decline in renal function, etiology unclear) [ ]i) Necessary support and caregiver ability to comply with outpatient treatment cannot be arranged in observation care timeframe (eg, within 24 hours) [ ]j) Other significant finding or clinical condition judged not to be within scope of observation care [X ]III.General contraindications and/or Inappropriate clinical situations for Observational Care in patients with Acute Renal Failure, when ANY ONE of the following is required: [X ]a) Prediction of prolongation of LOS based on ANY ONE of the following may be considered as a contraindication for observational care 2, 3, 4, 5, 6, 7, 8 , 9, 10, 11 [ X]i) Age > 65 yrs. [ ]ii) Patient arriving by ambulance [ ]iii) Patient with high acuity [ ]iv) Patient requiring vital sign monitoring [ ]v) Patient on IV medication [ ]b) Systolic blood pressures 180mmHg 3,12 [ ]c) Patient with altered mental status including delirium and other alteration of consciousness, (3) [ ]d) Patient whose discharge disposition will be to a shelter home or rehabilitation home should not be managed in Emergency Department Observation Unit. CMS rule requires 3 days hospital stay before such placement.3,13 [ ]e) Patient with failure to thrive due to broad array of etiologies 3, 16,17 [ ]f) Inability to ambulate 3,14 Extended stay beyond goal length of stay may be needed for(13) [ ]a) Continuing uremic complications [ ]b) Care for comorbidities [ ]c) acute renal failure [ ]d) Need for dialysis The original [employer] content created by [employer] has been revised. The portions of the content which have been revised are identified through the use of italic text or in bold, and [facility] has neither reviewed nor approved the modified material. All other unmodified content is copyright [employer]. Please see references footnoted in the original [facility] edition 2016 JUSTYNA RICO Feb 20, 2017 15:05
[2017-02-20 15:39] VITALS: BP 117/60
[2017-02-20] MEDS ORDERED: levOFLOXacin PER PHARMACY. MC PRN (16:30)
[2017-02-20] MEDS: hydroCHLOROthiazide 25 MG TABLET PO SCH (16:51)
[2017-02-20] MEDS: LISINOPRIL 20 MG TABLET PO SCH (16:51)
[2017-02-20 17:06] LABS: CALCIUM 8.8 mg/dL (8.5-10.1); CREATININE 1.9 mg/dL (0.7-1.3); GFR 40.7; POTASSIUM 3.7 mmol/L (3.5-5.1)
[2017-02-20] MEDS: metFORMIN 500 MG TABLET PO SCH (17:29)
[2017-02-20 19:57] VITALS: BP 115/56
[2017-02-20] MEDS: ATORVASTATIN CALCIUM 40 MG TABLET. PO SCH (20:44)
[2017-02-20] MEDS: LATANOPROST 0.005% OPHTH SOLUTION 2.5ML BOTTLE. OU SCH (20:44)
[2017-02-20] MEDS: DORZOLAMIDE 2% OPHTH SOLUTION 10ML BOTTLE. OU SCH (20:45)
[2017-02-20] MEDS: ENOXAPARIN 30 MG/0.3 ML SYRINGE. SQ SCH (20:45)
[2017-02-20] MEDS: BRIMONIDINE 0.2% OPHTH SOLUTION 5ML BOTTLE. OU SCH (20:45)
[2017-02-20 23:49] VITALS: BP 115/60
[2017-02-21 03:25] VITALS: BP 129/64
[2017-02-21] MEDS: IV NORMAL SALINE 1000ML BAG 1,000 ML IV SCH ×2 (03:38→17:19)
[2017-02-21 05:08] LABS: BASO % 0 % (0-3); EOS % 1 % (0-3); HEMATOCRIT 24.4 % (39.0-53.0); LYMPH # 1.1 x10^3/uL (1.0-4.8); LYMPH % 10 % (24-48); MEAN CORPUSCULAR HEMOGLOBIN 31 pg (25-35); MEAN CORPUSCULAR HGB CONC 33 g/dL (31-37); MEAN CORPUSCULAR VOLUME 95 fL (79-100); MONO % 23 % (0-9); NEUT % 67 % (31-73); PLATELET COUNT 338 x10^3/uL (140-400); RED BLOOD COUNT 2.56 x10^6/uL (4.30-5.70); RED CELL DISTRIBUTION WIDTH 15.8 % (11.5-14.5); WHITE BLOOD COUNT 11.5 x10^3/uL (4.0-11.0)
[2017-02-21 07:00] VITALS: BP 134/67
[2017-02-21] MEDS: PANTOPRAZOLE 40 MG TABLET.DR. PO SCH (07:51)
[2017-02-21] MEDS: THIAMINE 100 MG TABLET. PO SCH (07:51)
[2017-02-21] MEDS: metFORMIN 500 MG TABLET PO SCH ×2 (07:51→16:53)
[2017-02-21] MEDS: GLIMEPIRIDE 2 MG TABLET. PO SCH (07:51)
[2017-02-21] MEDS: CHOLECALCIFEROL (VITAMIN D3) 1,000 UNIT TABLET PO SCH (07:51)
[2017-02-21] MEDS: hydroCHLOROthiazide 25 MG TABLET PO SCH (07:52)
[2017-02-21] MEDS: MULTIVITAMIN with MINERAL TABLET. PO SCH (07:52)
[2017-02-21] MEDS: PARoxetine 10 MG TABLET PO SCH (07:52)
[2017-02-21] MEDS: LISINOPRIL 20 MG TABLET PO SCH (07:53)
[2017-02-21] MEDS: DORZOLAMIDE 2% OPHTH SOLUTION 10ML BOTTLE. OU SCH ×2 (07:54→21:01)
[2017-02-21] MEDS: BRIMONIDINE 0.2% OPHTH SOLUTION 5ML BOTTLE. OU SCH ×2 (07:54→21:01)
--- NOTE | 2017-02-21 10:34 | PDOC ---
Infectious Disease Note Vital Sign Vital Signs Vital Signs Date Time Temp Pulse Resp B/P (MAP) Pulse Ox O2 Delivery O2 Flow Rate FiO2 02/21/17 08:00 Room Air 02/21/17 07:53 102 134/67 02/21/17 07:00 98.1 18 100 98.1 Labs Lab Laboratory Tests Test 02/20/17 12:51 02/20/17 13:22 02/20/17 16:30 02/20/17 17:14 White Blood Count 13.9 x10^3/uL (4.0-11.0) Red Blood Count 2.54 x10^6/uL (4.30-5.70) Hemoglobin 8.0 g/dL (13.0-17.5) Hematocrit 24.5 % (39.0-53.0) Mean Corpuscular Volume 97 fL (79-100) Mean Corpuscular Hemoglobin 31 pg (25-35) Mean Corpuscular Hemoglobin Concent 33 g/dL (31-37) Red Cell Distribution Width 15.4 % (11.5-14.5) Platelet Count 385 x10^3/uL (140-400) Neutrophils (%) (Auto) 72 % (31-73) Lymphocytes (%) (Auto) 8 % (24-48) Monocytes (%) (Auto) 19 % (0-9) Eosinophils (%) (Auto) 0 % (0-3) Basophils (%) (Auto) 1 % (0-3) Neutrophils # (Auto) 10.0 x10^3uL (1.8-7.7) Lymphocytes # (Auto) 1.1 x10^3/uL (1.0-4.8) Monocytes # (Auto) 2.6 x10^3/uL (0.0-1.1) Eosinophils # (Auto) 0.0 x10^3/uL (0.0-0.7) Basophils # (Auto) 0.1 x10^3/uL (0.0-0.2) Segmented Neutrophils % 79 % (35-66) Lymphocytes % 9 % (24-48) Monocytes % 12 % (0-10) Platelet Estimate Adequate (ADEQUATE) Prothrombin Time 14.7 SEC (11.7-14.0) Prothromb Time International Ratio 1.2 (0.8-1.1) Activated Partial Thromboplast Time 38 SEC (24-38) Sodium Level 138 mmol/L (136-145) 139 mmol/L (136-145) Potassium Level 3.8 mmol/L (3.5-5.1) 3.7 mmol/L (3.5-5.1) Chloride Level 102 mmol/L (98-107) 106 mmol/L (98-107) Carbon Dioxide Level 21 mmol/L (21-32) 20 mmol/L (21-32) Anion Gap 15 (6-14) 13 (6-14) Blood Urea Nitrogen 57 mg/dL (8-26) 52 mg/dL (8-26) Creatinine 2.2 mg/dL (0.7-1.3) 1.9 mg/dL (0.7-1.3) Estimated GFR (Cockcroft-Gault) 34.4 40.7 BUN/Creatinine Ratio 26 (6-20) Glucose Level 261 mg/dL (70-99) 202 mg/dL (70-99) Lactic Acid Level 2.6 mmol/L (0.4-2.0) 2.9 mmol/L (0.4-2.0) Calcium Level 9.9 mg/dL (8.5-10.1) 8.8 mg/dL (8.5-10.1) Magnesium Level 1.8 mg/dL (1.8-2.4) Total Bilirubin 0.1 mg/dL (0.2-1.0) Aspartate Amino Transf (AST/SGOT) 29 U/L (15-37) Alanine Aminotransferase (ALT/SGPT) 24 U/L (16-63) Alkaline Phosphatase 107 U/L (46-116) Creatine Kinase 22 U/L (39-308) Troponin I Quantitative < 0.017 ng/mL (0.000-0.055) JY-Ccx-P-Type Natriuretic Peptide 687 pg/mL (0-449) Total Protein 8.1 g/dL (6.4-8.2) Albumin 2.5 g/dL (3.4-5.0) Albumin/Globulin Ratio 0.4 (1.0-1.7) Lipase 124 U/L (73-393) Thyroid Stimulating Hormone (TSH) 1.167 uIU/mL (0.358-3.74) Urine Collection Type Unknown Urine Color Yellow Urine Clarity Cloudy Urine pH 6.0 Urine Specific [place] 1.015 Urine Protein 30 mg/dL (NEG-TRACE) Urine Glucose (UA) Negative mg/dL (NEG) Urine Ketones (Stick) Negative mg/dL (NEG) Urine Blood Negative (NEG) Urine Nitrite Negative (NEG) Urine Bilirubin Negative (NEG) Urine Urobilinogen Dipstick 0.2 mg/dL (0.2 mg/dL) Urine Leukocyte Esterase Small (NEG) Urine RBC 0 /HPF (0-2) Urine WBC 11-20 /HPF (0-4) Urine Bacteria Many /HPF (0-FEW) Urine Mucus Mod /LPF Glucose (Fingerstick) 178 mg/dL (70-99) Test 02/20/17 20:44 02/21/17 04:45 02/21/17 07:19 Glucose (Fingerstick) 198 mg/dL (70-99) 130 mg/dL (70-99) White Blood Count 11.5 x10^3/uL (4.0-11.0) Red Blood Count 2.56 x10^6/uL (4.30-5.70) Hemoglobin 8.0 g/dL (13.0-17.5) Hematocrit 24.4 % (39.0-53.0) Mean Corpuscular Volume 95 fL (79-100) Mean Corpuscular Hemoglobin 31 pg (25-35) Mean Corpuscular Hemoglobin Concent 33 g/dL (31-37) Red Cell Distribution Width 15.8 % (11.5-14.5) Platelet Count 338 x10^3/uL (140-400) Neutrophils (%) (Auto) 67 % (31-73) Lymphocytes (%) (Auto) 10 % (24-48) Monocytes (%) (Auto) 23 % (0-9) Eosinophils (%) (Auto) 1 % (0-3) Basophils (%) (Auto) 0 % (0-3) Neutrophils # (Auto) 7.7 x10^3uL (1.8-7.7) Lymphocytes # (Auto) 1.1 x10^3/uL (1.0-4.8) Monocytes # (Auto) 2.6 x10^3/uL (0.0-1.1) Eosinophils # (Auto) 0.1 x10^3/uL (0.0-0.7) Basophils # (Auto) 0.0 x10^3/uL (0.0-0.2) Objective Assessment FORTUNATO sec to dehydration Leukocytosis reactive SIRS Depression Plan Plan of Care d/c antibiotics need more fluids supportive care pt/ot STEPHANIE CLEANING MD Feb 21, 2017 10:33
[2017-02-21 11:00] VITALS: BP 138/69
[2017-02-21] MEDS ORDERED: IV NORMAL SALINE 1000ML BAG 1,000 ML IV ONE (11:00)
[2017-02-21] MEDS: INSULIN ASPART 300 UNITS/3 ML INSULN.PEN SQ SCH ×3 (11:30→20:59)
--- NOTE | 2017-02-21 12:06 | CONS ---
DATE OF CONSULTATION: 02/21/2017 REQUESTING PHYSICIAN: Dr. Whaley. REASON FOR CONSULTATION: Sepsis screen positive. HISTORY OF PRESENT ILLNESS: This is an 87-year-old -German gentleman who was transferred from [facility]. The patient was transferred because of increased heart rate, not eating or drinking and suspected dehydration. The patient is not barky, depressed, although according to family that is the way he is. The patient denies any pain, denies any nausea, vomiting. Denies any diarrhea. Denies any chest pain, shortness of breath, abdominal pain, just does not feel like doing anything he says. The patient was noted to have a leukocytosis of 13,000, but more importantly acute renal failure with a BUN and creatinine 57 and 2.2, which after hydration is improving. Lactic acid was 2.9. The patient is feeling better, but he feels "depressed and does not want to go home". PAST MEDICAL HISTORY: Positive for diabetes mellitus, hypertension, renal insufficiency. The patient has had cancer with colectomy , TUR and urostomy. SOCIAL HISTORY: Negative for smoking, alcohol, illicit drug use. ALLERGIES: No known drug allergies. CURRENT MEDICATIONS: Reviewed. The patient is on Levaquin and Rocephin. REVIEW OF SYSTEMS: As per HPI. All other systems reviewed are negative. PHYSICAL EXAMINATION: GENERAL: Alert, oriented gentleman who looks depressed, not in distress. VITAL SIGNS: Stable, afebrile. HEENT: NAD. NECK: Supple, no JVP, no lymphadenopathy. LUNGS: Clear. HEART: S1, S2 regular. ABDOMEN: Benign. Colostomy and ileal conduit present. NEUROLOGICAL: The patient is neurologically intact. LABORATORY DATA: White count is down to 11.5, hemoglobin 8000, platelets are normal. BUN and creatinine 52 and 1.9, which is improving. Urinalysis showed 11-20 wbc. MRSA screen positive. Cultures are pending. Chest x-ray is unremarkable. IMPRESSION: 1. Failure to thrive with not eating and drinking enough causing acute kidney injury and dehydration. 2. Leukocytosis, which is reactive. 3. Systemic inflammatory response syndrome is related to dehydration. 4. Depression. RECOMMENDATION: We would discontinue antibiotics, still needs more fluids, PT/OT, supportive care and eventually either psychiatric help or at least antidepressants by primary to help him. Thank you very much, Dr. Whaley for giving me the opportunity to participate in this patient's care. STEPHANIE CLEANING MD DR: CHLOÉ/meron JOB#: [id number] / [id number]
[2017-02-21 13:51] LABS: ALBUMIN 2.3 g/dL (3.4-5.0); ALBUMIN/GLOBULIN RATIO 0.6 (1.0-1.7); CALCIUM 8.7 mg/dL (8.5-10.1); CREATININE 1.8 mg/dL (0.7-1.3); GFR 43.3; TOTAL BILIRUBIN 0.1 mg/dL (0.2-1.0); TOTAL PROTEIN 6.3 g/dL (6.4-8.2)
[2017-02-21 15:00] VITALS: BP 138/67
[2017-02-21 19:01] VITALS: BP 140/62
[2017-02-21] MEDS: LATANOPROST 0.005% OPHTH SOLUTION 2.5ML BOTTLE. OU SCH (21:01)
[2017-02-21] MEDS: ENOXAPARIN 30 MG/0.3 ML SYRINGE. SQ SCH (21:01)
[2017-02-21] MEDS: ATORVASTATIN CALCIUM 40 MG TABLET. PO SCH (21:01)
[2017-02-21 23:00] VITALS: BP 137/68
[2017-02-22] VITALS (15 sets, daily range): BP systolic 138–175; BP diastolic 63–80
--- NOTE | 2017-02-22 00:55 | HP ---
ADMIT DATE: 02/20/2017 CHIEF COMPLAINT: Tachycardia. HISTORY OF PRESENT ILLNESS AND HOSPITAL COURSE: The patient is an 87-year-old -Sammarinese male who has recently been released from [facility] less than 1 week ago and was moved into [facility] living by his family was noted to have rapid heart rate and increased weakness and was brought to the Emergency Room. The patient's EKG rate upon arrival was 99. This was easily controlled in the Emergency Room. The patient had evidence of progressive acute on chronic renal failure with high BUN and creatinine twice baseline as well as evidence of sepsis with high white count, low blood pressure and a high heart rate and abnormal urine findings. Due to patient's inability to care for himself and increasing debilitation, he was admitted for IV antibiotics, IV fluids, Infectious Disease consultation, further PT and OT evaluation and treatment and possible care home placement. PAST MEDICAL HISTORY: Significant for recent upper hospitalization for UTI and sepsis on 01/14/2017 as well as profound weight loss after 's . The patient has a history of prostate cancer and has ileostomy. The patient has a history of rectal CA and has colonoscopy. The patient has type 2 diabetes, hypertension, chronic kidney disease stage 3, anemia due to chronic kidney disease, hyperlipidemia and glaucoma. FAMILY HISTORY: Mother with complications of CVA. Father with complications of cancer. PAST SURGICAL HISTORY: 1. Significant for cystoscopy and complete removal of prostate and bladder with ileal conduit in place. 2. Back surgery. 3. Partial colectomy with colostomy in place. SOCIAL HISTORY: The patient was recently transferred to assisted living, but apparently was unable to care for himself to the point he was eating and drinking sufficiently and only lasted less than 1 week prior to re-hospitalization. The patient never smoked. He has had good support from daughters. ALLERGIES: TO STATINS WHICH CAUSE MUSCLE ACHES. REVIEW OF SYSTEMS: The patient has increased weakness, but denies shortness of breath, chest pain, nausea, vomiting, diarrhea, cough, congestion, fever. The patient's weight has been stable since at [facility]. PHYSICAL EXAMINATION. GENERAL: The patient is a well-nourished, Afro-Sammarinese male, in no apparent distress on my exam. He is alert and oriented. HEENT: Benign. NECK: Supple. CARDIAC: Regular rate and rhythm. LUNGS: Clear. ABDOMEN: Soft and nontender with functioning colostomy and ileal conduit. EXTREMITIES: 2+ pulses without significant edema. NEUROLOGIC: Exam showed no unilateral findings. ASSESSMENT: 1. Acute on chronic renal failure. 2. Sepsis. 3. Urinary tract infection. 4. Type 2 diabetes. 5. Hypertension. 6. Chronic kidney disease. 7. Hyperlipidemia. 8. Glaucoma. PLAN: To proceed with IV fluids, IV antibiotics, PT and OT modalities and assess assisted living versus care home placement and provides detention the patient requires. KRISTINA LEIGH MD DR: STEFANIA/meron JOB#: [id number] / [id number]
[2017-02-22] MEDS: IV NORMAL SALINE 1000ML BAG 1,000 ML IV SCH ×2 (04:26→20:53)
[2017-02-22] MEDS: INSULIN ASPART 300 UNITS/3 ML INSULN.PEN SQ SCH ×4 (07:30→20:57)
[2017-02-22] MEDS: metFORMIN 500 MG TABLET PO SCH ×2 (07:36→17:05)
[2017-02-22] MEDS: PANTOPRAZOLE 40 MG TABLET.DR. PO SCH (07:36)
[2017-02-22] MEDS: BRIMONIDINE 0.2% OPHTH SOLUTION 5ML BOTTLE. OU SCH ×2 (07:36→20:52)
[2017-02-22] MEDS: DORZOLAMIDE 2% OPHTH SOLUTION 10ML BOTTLE. OU SCH ×2 (07:36→20:52)
[2017-02-22] MEDS: hydroCHLOROthiazide 25 MG TABLET PO SCH (07:36)
[2017-02-22] MEDS: LISINOPRIL 20 MG TABLET PO SCH (07:36)
[2017-02-22] MEDS: THIAMINE 100 MG TABLET. PO SCH (07:36)
[2017-02-22] MEDS: GLIMEPIRIDE 2 MG TABLET. PO SCH (07:36)
[2017-02-22] MEDS: PARoxetine 10 MG TABLET PO SCH (07:36)
[2017-02-22] MEDS: CHOLECALCIFEROL (VITAMIN D3) 1,000 UNIT TABLET PO SCH (07:37)
[2017-02-22] MEDS: MULTIVITAMIN with MINERAL TABLET. PO SCH (07:37)
--- NOTE | 2017-02-22 11:46 | PDOC ---
Infectious Disease Note Subjective Subjective says feeling better ROS ROS GEN: Denies fevers, chills, sweats HEENT: Denies blurred vision, sore throat CV: Denies chest pain RESP: Denies shortness of air, cough GI: Denies n/v/d NEURO: Denies confusion, dizziness MSK: Denies weakness, joint pain/swelling Vital Sign Vital Signs Vital Signs Date Time Temp Pulse Resp B/P (MAP) Pulse Ox O2 Delivery O2 Flow Rate FiO2 02/22/17 10:49 98.1 93 20 144/69 (94) 99 Room Air 98.1 Physical Exam PHYSICAL EXAM GENERAL: NAD, Alert HEENT: PERRL, OC/OP NECK: Supple, no JVD, no LN LUNGS: Clear HEART: S1S2, no gallop, no murmur ABD: Soft, NT, no organomegaly, no rebound EXT: No edema, no cyanosis FSR: Alert, oriented x 3, no focal neurologic deficit SKIN: No rash IV: ok Labs Lab Laboratory Tests Test 02/21/17 16:38 02/21/17 20:28 02/22/17 07:24 02/22/17 10:47 Glucose (Fingerstick) 122 mg/dL (70-99) 73 mg/dL (70-99) 74 mg/dL (70-99) 109 mg/dL (70-99) Micro culture neg Objective Assessment FORTUNATO sec to dehydration Leukocytosis reactive SIRS Depression Plan Plan of Care need more fluids supportive care pt/ot STEPHANIE CLEANING MD Feb 22, 2017 11:46
--- NOTE | 2017-02-22 12:51 | PDOC ---
PROGRESS NOTES Subjective Subjective Patient feeling better today. Disposition discussed with patient and daughter who is in the room and second daughter who is on speaker phone. Patient has failed assisted living after less than 4 days. Patient did do well and prison and may require long-term placement if family cannot assist with care on a 24-hour basis. Patient continues to exhibit signs of depression with decreased motivation and slowed speech with blunted affect. Geriatric psych eval has been ordered and family and patient agree with inpatient treatment if necessary. Plans to send to prison if patient does not qualify for geriatric psych versus long-term placement versus home AGAINST MEDICAL ADVICE with PT and OT and prison via [facility]. Objective Objective Vital Signs Date Time Temp Pulse Resp B/P (MAP) Pulse Ox O2 Delivery O2 Flow Rate FiO2 02/22/17 10:49 98.1 93 20 144/69 (94) 99 Room Air 98.1 Intake and Output 02/22/17 07:00 Intake Total 840 ml Output Total 2000 ml Balance -1160 ml Intake Oral 840 ml Output Urine Total 2000 ml Physical Exam Abdomen: Normal bowel sounds Heart: Regular rate Extremities: No edema General: Alert Lungs: Clear to auscultation Psych/Mental Status: Other (blunted affect slowed speech poor motivation) Assessment Assessment Problems Medical Problems: (1) Anemia Status: Acute (2) Dehydration Status: Acute (3) Renal insufficiency Status: Acute 1. Acute on chronic renal failure. 2. Major depression. 3. Urinary tract infection. 4. Type 2 diabetes. 5. Hypertension. 6. Chronic kidney disease. 7. Hyperlipidemia. 8. Glaucoma. 9. SIRS 10. Anemia Plan Plan of Care Consult social work for Ara psych eval versus prison eval on transfer. Proceed with blood transfusion due to low hemoglobin and poor functional ability Increase Paxil Seek with PT and OT modalities Comment Review of Relevant I have reviewed the following items cristiano (where applicable) has been applied. Labs Laboratory Tests Test 02/20/17 12:51 02/20/17 13:22 02/20/17 16:30 02/20/17 17:14 White Blood Count 13.9 x10^3/uL (4.0-11.0) Red Blood Count 2.54 x10^6/uL (4.30-5.70) Hemoglobin 8.0 g/dL (13.0-17.5) Hematocrit 24.5 % (39.0-53.0) Mean Corpuscular Volume 97 fL (79-100) Mean Corpuscular Hemoglobin 31 pg (25-35) Mean Corpuscular Hemoglobin Concent 33 g/dL (31-37) Red Cell Distribution Width 15.4 % (11.5-14.5) Platelet Count 385 x10^3/uL (140-400) Neutrophils (%) (Auto) 72 % (31-73) Lymphocytes (%) (Auto) 8 % (24-48) Monocytes (%) (Auto) 19 % (0-9) Eosinophils (%) (Auto) 0 % (0-3) Basophils (%) (Auto) 1 % (0-3) Neutrophils # (Auto) 10.0 x10^3uL (1.8-7.7) Lymphocytes # (Auto) 1.1 x10^3/uL (1.0-4.8) Monocytes # (Auto) 2.6 x10^3/uL (0.0-1.1) Eosinophils # (Auto) 0.0 x10^3/uL (0.0-0.7) Basophils # (Auto) 0.1 x10^3/uL (0.0-0.2) Segmented Neutrophils % 79 % (35-66) Lymphocytes % 9 % (24-48) Monocytes % 12 % (0-10) Platelet Estimate Adequate (ADEQUATE) Prothrombin Time 14.7 SEC (11.7-14.0) Prothromb Time International Ratio 1.2 (0.8-1.1) Activated Partial Thromboplast Time 38 SEC (24-38) Sodium Level 138 mmol/L (136-145) 139 mmol/L (136-145) Potassium Level 3.8 mmol/L (3.5-5.1) 3.7 mmol/L (3.5-5.1) Chloride Level 102 mmol/L (98-107) 106 mmol/L (98-107) Carbon Dioxide Level 21 mmol/L (21-32) 20 mmol/L (21-32) Anion Gap 15 (6-14) 13 (6-14) Blood Urea Nitrogen 57 mg/dL (8-26) 52 mg/dL (8-26) Creatinine 2.2 mg/dL (0.7-1.3) 1.9 mg/dL (0.7-1.3) Estimated GFR (Cockcroft-Gault) 34.4 40.7 BUN/Creatinine Ratio 26 (6-20) Glucose Level 261 mg/dL (70-99) 202 mg/dL (70-99) Lactic Acid Level 2.6 mmol/L (0.4-2.0) 2.9 mmol/L (0.4-2.0) Calcium Level 9.9 mg/dL (8.5-10.1) 8.8 mg/dL (8.5-10.1) Magnesium Level 1.8 mg/dL (1.8-2.4) Total Bilirubin 0.1 mg/dL (0.2-1.0) Aspartate Amino Transf (AST/SGOT) 29 U/L (15-37) Alanine Aminotransferase (ALT/SGPT) 24 U/L (16-63) Alkaline Phosphatase 107 U/L (46-116) Creatine Kinase 22 U/L (39-308) Troponin I Quantitative < 0.017 ng/mL (0.000-0.055) TT-Gvi-H-Type Natriuretic Peptide 687 pg/mL (0-449) Total Protein 8.1 g/dL (6.4-8.2) Albumin 2.5 g/dL (3.4-5.0) Albumin/Globulin Ratio 0.4 (1.0-1.7) Lipase 124 U/L (73-393) Thyroid Stimulating Hormone (TSH) 1.167 uIU/mL (0.358-3.74) Urine Collection Type Unknown Urine Color Yellow Urine Clarity Cloudy Urine pH 6.0 Urine Specific [place] 1.015 Urine Protein 30 mg/dL (NEG-TRACE) Urine Glucose (UA) Negative mg/dL (NEG) Urine Ketones (Stick) Negative mg/dL (NEG) Urine Blood Negative (NEG) Urine Nitrite Negative (NEG) Urine Bilirubin Negative (NEG) Urine Urobilinogen Dipstick 0.2 mg/dL (0.2 mg/dL) Urine Leukocyte Esterase Small (NEG) Urine RBC 0 /HPF (0-2) Urine WBC 11-20 /HPF (0-4) Urine Bacteria Many /HPF (0-FEW) Urine Mucus Mod /LPF Glucose (Fingerstick) 178 mg/dL (70-99) Test 02/20/17 20:44 02/21/17 04:00 02/21/17 04:45 8/2/17 07:19 Glucose (Fingerstick) 198 mg/dL (70-99) 130 mg/dL (70-99) Nasal Screen MRSA (PCR) Positive (Negative) White Blood Count 11.5 x10^3/uL (4.0-11.0) Red Blood Count 2.56 x10^6/uL (4.30-5.70) Hemoglobin 8.0 g/dL (13.0-17.5) Hematocrit 24.4 % (39.0-53.0) Mean Corpuscular Volume 95 fL (79-100) Mean Corpuscular Hemoglobin 31 pg (25-35) Mean Corpuscular Hemoglobin Concent 33 g/dL (31-37) Red Cell Distribution Width 15.8 % (11.5-14.5) Platelet Count 338 x10^3/uL (140-400) Neutrophils (%) (Auto) 67 % (31-73) Lymphocytes (%) (Auto) 10 % (24-48) Monocytes (%) (Auto) 23 % (0-9) Eosinophils (%) (Auto) 1 % (0-3) Basophils (%) (Auto) 0 % (0-3) Neutrophils # (Auto) 7.7 x10^3uL (1.8-7.7) Lymphocytes # (Auto) 1.1 x10^3/uL (1.0-4.8) Monocytes # (Auto) 2.6 x10^3/uL (0.0-1.1) Eosinophils # (Auto) 0.1 x10^3/uL (0.0-0.7) Basophils # (Auto) 0.0 x10^3/uL (0.0-0.2) Sodium Level 140 mmol/L (136-145) Potassium Level 4.0 mmol/L (3.5-5.1) Chloride Level 106 mmol/L (98-107) Carbon Dioxide Level 21 mmol/L (21-32) Anion Gap 13 (6-14) Blood Urea Nitrogen 45 mg/dL (8-26) Creatinine 1.8 mg/dL (0.7-1.3) Estimated GFR (Cockcroft-Gault) 43.3 BUN/Creatinine Ratio 25 (6-20) Glucose Level 101 mg/dL (70-99) Calcium Level 8.7 mg/dL (8.5-10.1) Total Bilirubin 0.1 mg/dL (0.2-1.0) Aspartate Amino Transf (AST/SGOT) 29 U/L (15-37) Alanine Aminotransferase (ALT/SGPT) 25 U/L (16-63) Alkaline Phosphatase 90 U/L (46-116) Total Protein 6.3 g/dL (6.4-8.2) Albumin 2.3 g/dL (3.4-5.0) Albumin/Globulin Ratio 0.6 (1.0-1.7) Test 02/21/17 11:42 02/21/17 16:38 02/21/17 20:28 02/22/17 07:24 Glucose (Fingerstick) 149 mg/dL (70-99) 122 mg/dL (70-99) 73 mg/dL (70-99) 74 mg/dL (70-99) Test 02/22/17 10:47 Glucose (Fingerstick) 109 mg/dL (70-99) Laboratory Tests Test 02/21/17 16:38 02/21/17 20:28 02/22/17 07:24 02/22/17 10:47 Glucose (Fingerstick) 122 mg/dL (70-99) 73 mg/dL (70-99) 74 mg/dL (70-99) 109 mg/dL (70-99) Microbiology 02/20/17 Blood Culture - Preliminary, Resulted NO GROWTH AFTER 1 DAY 02/20/17 Urine Culture - Preliminary, Resulted 02/20/17 Urine Culture Result 1 (HERBERT) - Preliminary, Resulted Medications Current Medications Sodium Chloride 1,000 ml @ 1,000 mls/hr 1X ONCE IV Last administered on 12:25; Start 02/20/17 at 12:30; Stop 02/20/17 at 13:29; Status DC Ondansetron HCl (Zofran) 4 mg PRN Q8HRS PRN IV NAUSEA/VOMITING; Start 02/20/17 at 14:15; Stop 02/21/17 at 14:14; Status DC Sodium Chloride 1,000 ml @ 75 mls/hr [id number] IV Last administered on 02/21/17 03:38; Start 02/20/17 at 14:04; Stop 02/21/17 at 14:03; Status DC Vitamin D (Vitamin D3) 1,000 unit DAILY PO Last administered on 02/22/17 07:37 ; Start 02/21/17 at 09:00 Diltiazem HCl (Cardizem 24hr Cd) 240 mg DAILY PO Last administered on 02/22/17 07:35; Start 02/20/17 at 17:00 Dorzolamide HCl (Trusopt) 1 drop BID OU Last administered on 02/22/17 07:36; Start 02/20/17 at 21:00 Glimepiride (Amaryl) 2 mg DAILY PO Last administered on 02/22/17 07:36; Start 02/21/17 at 09:00 Hydrochlorothiazide (Hydrodiuril) 25 mg DAILY PO Last administered on 02/22/17 07:36; Start 02/20/17 at 17:00 Latanoprost (Xalatan) 1 drop HS OU Last administered on 02/21/17 21:01; Start 02/20/17 at 21:00 Lisinopril (Prinivil) 20 mg DAILY PO Last administered on 02/22/17 07:36; Start 02/20/17 at 17:00 Metformin HCl (Glucophage) 500 mg BIDWMEALS PO Last administered on 02/22/17 07 :36; Start 02/20/17 at 17:00 Paroxetine HCl (Paxil) 10 mg DAILY PO Last administered on 02/22/17 07:36; Start 02/21/17 at 09:00; Stop 02/22/17 at 12:44; Status DC Brimonidine Tartrate (Alphagan) 1 drop BID OU Last administered on 02/22/17 07: 36; Start 02/20/17 at 21:00 Multivitamins (Thera M Plus) 1 tab DAILY PO Last administered on 02/22/17 07:37 ; Start 02/21/17 at 09:00 Pantoprazole Sodium (Protonix) 40 mg DAILYAC PO Last administered on 02/22/17 07:36; Start 02/21/17 at 07:30 Atorvastatin Calcium (Lipitor) 40 mg QHS PO Last administered on 02/21/17 21:01 ; Start 02/20/17 at 21:00 Thiamine Mononitrate (Vitamin B-1) 100 mg DAILY PO Last administered on 07:36; Start 02/21/17 at 09:00 Ceftriaxone Sodium 1 gm/ Sodium Chloride 50 ml @ 100 mls/hr Q24H IV Last administered on 02/20/17 18:27; Start 02/20/17 at 18:00; Stop 02/21/17 at 10:31; Status DC Levofloxacin/ Dextrose (Levaquin Per Pharmacy) 1 each PRN DAILY PRN MC SEE COMMENTS; Start 02/20/17 at 16:30; Stop 02/21/17 at 10:36; Status DC Enoxaparin Sodium (Lovenox 30mg Syringe) 30 mg Q24H SQ Last administered on 02/21 21:01; Start 02/20/17 at 21:00 Levofloxacin/ Dextrose 50 ml @ 50 mls/hr Q24H IV Last administered on 02/20/17 17:29; Start 02/20/17 at 17:00; Stop 02/21/17 at 10:31; Status DC Insulin Aspart (NovoLOG) 0-12 UNITS QIDACHS SQ ; Start 02/21/17 at 11:30 Sodium Chloride 1,000 ml @ 150 mls/hr 1X ONCE IV Last administered on 11:16; Start 02/21/17 at 11:00; Stop 02/21/17 at 17:39; Status DC Sodium Chloride 1,000 ml @ 75 mls/hr [id number] IV Last administered on 02/22/17 04:26; Start 02/21/17 at 17:15 Paroxetine HCl (Paxil) 20 mg DAILY PO ; Start 02/23/17 at 09:00; Status UNV Active Scripts Active Reported Dorzolamide Hcl 10 Ml Drops 1 Drop EACHEYE BID Crestor (Rosuvastatin Calcium) 10 Mg Tablet 10 Mg PO HS Latanoprost 2.5 Ml Drops 1 Drop OP HS Vitamin D3 (Cholecalciferol (Vitamin D3)) 1,000 Unit Tablet 1,000 Unit PO DAILY B-1 (Thiamine HCl) 100 Mg Tablet 100 Mg PO DAILY Alphagan P (Brimonidine Tartrate) 5 Ml Drops 2 Drop EACHEYE BID Omeprazole 20 Mg Capsule.dr 20 Mg PO DAILY Lisinopril 20 Mg Tablet 20 Mg PO DAILY Paxil (Paroxetine Hcl) 10 Mg Tablet 10 Mg PO DAILY Multivitamins (Multivitamin) 1 Each Tablet 1 Each PO DAILY Diltiazem 24HR Cd (Diltiazem Hcl) 120 Mg Cap.er.24h 240 Mg PO DAILY Metformin Hcl 500 Mg Tablet 500 Mg PO BIDWMEALS Glimepiride 2 Mg Tablet 2 Mg PO DAILY Hydrochlorothiazide Tablet (Hydrochlorothiazide) 25 Mg Tablet 25 Mg PO DAILY Vitals/I & O Vital Sign - Last 24 Hours 02/21/17 02/21/17 02/21/17 02/22/17 15:00 19:01 23:00 03:09 Temp 98.3 98.8 98.1 98.1 98.3 98.8 98.1 98.1 Pulse 90 94 96 90 Resp 18 20 20 20 B/P (MAP) 138/67 (90) 140/62 (88) 137/68 (91) 175/66 (102) Pulse Ox 99 100 99 99 O2 Delivery Room Air Room Air Room Air Room Air 02/22/17 02/22/17 02/22/17 02/22/17 07:00 07:35 07:36 07:41 Temp 98.1 98.1 Pulse 95 95 95 Resp 20 B/P (MAP) 152/80 (104) 152/80 152/80 Pulse Ox 99 O2 Delivery Room Air Room Air 02/22/17 10:49 Temp 98.1 98.1 Pulse 93 Resp 20 B/P (MAP) 144/69 (94) Pulse Ox 99 O2 Delivery Room Air Intake and Output 02/21/17 02/21/17 02/22/17 15:00 23:00 07:00 Intake Total 620 ml 220 ml Output Total 1300 ml 700 ml Balance -680 ml -480 ml KRISTINA LEIGH MD Feb 22, 2017 12:51
[2017-02-22] MEDS ORDERED: FUROSEMIDE 40 MG/4 ML VIAL. IV ONE (13:15)
[2017-02-22] MEDS ORDERED: FUROSEMIDE 20 MG/2 ML VIAL. IVP ONE (13:15)
[2017-02-22] MEDS: ATORVASTATIN CALCIUM 40 MG TABLET. PO SCH (20:51)
[2017-02-22] MEDS: ENOXAPARIN 30 MG/0.3 ML SYRINGE. SQ SCH (20:52)
[2017-02-22] MEDS: LATANOPROST 0.005% OPHTH SOLUTION 2.5ML BOTTLE. OU SCH (20:53)
[2017-02-23 03:00] VITALS: BP 146/71
[2017-02-23 04:34] LABS: BASO % 0 % (0-3); EOS % 1 % (0-3); HEMATOCRIT 32.4 % (39.0-53.0); HEMOGLOBIN 10.7 g/dL (13.0-17.5); LYMPH # 1.4 x10^3/uL (1.0-4.8); LYMPH % 10 % (24-48); MEAN CORPUSCULAR HEMOGLOBIN 30 pg (25-35); MEAN CORPUSCULAR HGB CONC 33 g/dL (31-37); MEAN CORPUSCULAR VOLUME 90 fL (79-100); MONO % 19 % (0-9); NEUT % 71 % (31-73); PLATELET COUNT 321 x10^3/uL (140-400); RED BLOOD COUNT 3.59 x10^6/uL (4.30-5.70); RED CELL DISTRIBUTION WIDTH 17.5 % (11.5-14.5); WHITE BLOOD COUNT 13.8 x10^3/uL (4.0-11.0)
[2017-02-23 05:04] LABS: CALCIUM 9.5 mg/dL (8.5-10.1); CREATININE 1.4 mg/dL (0.7-1.3); GFR 57.9; POTASSIUM 3.2 mmol/L (3.5-5.1)
[2017-02-23] MEDS: INSULIN ASPART 300 UNITS/3 ML INSULN.PEN SQ SCH ×2 (07:30→11:30)
[2017-02-23 07:45] VITALS: BP 153/72
[2017-02-23] MEDS: DORZOLAMIDE 2% OPHTH SOLUTION 10ML BOTTLE. OU SCH (07:56)
[2017-02-23] MEDS: BRIMONIDINE 0.2% OPHTH SOLUTION 5ML BOTTLE. OU SCH (07:56)
[2017-02-23] MEDS: THIAMINE 100 MG TABLET. PO SCH (07:58)
[2017-02-23] MEDS: CHOLECALCIFEROL (VITAMIN D3) 1,000 UNIT TABLET PO SCH (07:58)
[2017-02-23] MEDS: hydroCHLOROthiazide 25 MG TABLET PO SCH (07:58)
[2017-02-23] MEDS: MULTIVITAMIN with MINERAL TABLET. PO SCH (07:58)
[2017-02-23] MEDS: metFORMIN 500 MG TABLET PO SCH (07:58)
[2017-02-23] MEDS: IV NORMAL SALINE 1000ML BAG 1,000 ML IV SCH (07:58)
[2017-02-23] MEDS: PANTOPRAZOLE 40 MG TABLET.DR. PO SCH (07:58)
[2017-02-23] MEDS: GLIMEPIRIDE 2 MG TABLET. PO SCH (08:01)
[2017-02-23] MEDS: LISINOPRIL 20 MG TABLET PO SCH (08:02)
[2017-02-23] MEDS ORDERED: PARoxetine 20 MG TABLET PO SCH (09:00)
[2017-02-23] MEDS ORDERED: POTASSIUM CHLORIDE 20 MEQ TABLET.ER. PO ONE (09:30)
[2017-02-23 10:01] VITALS: BP 154/73
--- NOTE | 2017-02-23 10:40 | PDOC ---
Infectious Disease Note Subjective Subjective says feeling better ROS ROS GEN: Denies fevers, chills, sweats HEENT: Denies blurred vision, sore throat CV: Denies chest pain RESP: Denies shortness of air, cough GI: Denies n/v/d NEURO: Denies confusion, dizziness MSK: Denies weakness, joint pain/swelling Vital Sign Vital Signs Vital Signs Date Time Temp Pulse Resp B/P (MAP) Pulse Ox O2 Delivery O2 Flow Rate FiO2 02/23/17 10:01 98.5 95 15 154/73 (100) 100 Room Air 98.5 Physical Exam PHYSICAL EXAM GENERAL: NAD, Alert HEENT: PERRL, OC/OP NECK: Supple, no JVD, no LN LUNGS: Clear HEART: S1S2, no gallop, no murmur ABD: Soft, NT, no organomegaly, no rebound EXT: No edema, no cyanosis GROUNDHAND: Alert, oriented x 3, no focal neurologic deficit SKIN: No rash IV: ok Labs Lab Laboratory Tests Test 02/22/17 10:47 02/22/17 13:35 02/22/17 16:55 02/22/17 20:56 Glucose (Fingerstick) 109 mg/dL (70-99) 122 mg/dL (70-99) 102 mg/dL (70-99) Hemoglobin 7.7 g/dL (13.0-17.5) Hematocrit 24.1 % (39.0-53.0) Test 02/23/17 04:00 02/23/17 07:47 White Blood Count 13.8 x10^3/uL (4.0-11.0) Red Blood Count 3.59 x10^6/uL (4.30-5.70) Hemoglobin 10.7 g/dL (13.0-17.5) Hematocrit 32.4 % (39.0-53.0) Mean Corpuscular Volume 90 fL (79-100) Mean Corpuscular Hemoglobin 30 pg (25-35) Mean Corpuscular Hemoglobin Concent 33 g/dL (31-37) Red Cell Distribution Width 17.5 % (11.5-14.5) Platelet Count 321 x10^3/uL (140-400) Neutrophils (%) (Auto) 71 % (31-73) Lymphocytes (%) (Auto) 10 % (24-48) Monocytes (%) (Auto) 19 % (0-9) Eosinophils (%) (Auto) 1 % (0-3) Basophils (%) (Auto) 0 % (0-3) Neutrophils # (Auto) 9.7 x10^3uL (1.8-7.7) Lymphocytes # (Auto) 1.4 x10^3/uL (1.0-4.8) Monocytes # (Auto) 2.6 x10^3/uL (0.0-1.1) Eosinophils # (Auto) 0.1 x10^3/uL (0.0-0.7) Basophils # (Auto) 0.0 x10^3/uL (0.0-0.2) Sodium Level 140 mmol/L (136-145) Potassium Level 3.2 mmol/L (3.5-5.1) Chloride Level 106 mmol/L (98-107) Carbon Dioxide Level 19 mmol/L (21-32) Anion Gap 15 (6-14) Blood Urea Nitrogen 31 mg/dL (8-26) Creatinine 1.4 mg/dL (0.7-1.3) Estimated GFR (Cockcroft-Gault) 57.9 Glucose Level 126 mg/dL (70-99) Calcium Level 9.5 mg/dL (8.5-10.1) Glucose (Fingerstick) 94 mg/dL (70-99) Micro culture neg Objective Assessment FORTUNATO sec to dehydration Leukocytosis reactive SIRS Depression Plan Plan of Care need more fluids supportive care pt/ot STEPHANIE CLEANING MD Feb 23, 2017 10:40
--- NOTE | 2017-02-23 13:20 | DS ---
DATE OF DISCHARGE: 02/23/2017 ADMITTING DIAGNOSIS: Acute on chronic renal failure. DISCHARGE DIAGNOSES: 1. Urinary tract infection, possible sepsis. 2. Type 2 diabetes. 3. Hypertension. 4. Chronic renal disease. 5. Hyperlipidemia. 6. Glaucoma. 7. Major depression. HISTORY OF PRESENT ILLNESS AND HOSPITAL COURSE: This patient is an 87-year-old -[place] male who was recently transferred from correction to assisted living. Within 4 days, patient became increasingly weak and confused and with evidence of dehydration and acute on chronic renal failure, came to the Emergency Room, was found to have elevated BUN and creatinine, confirming the fact that the patient was no longer able to care for himself even with assistance from assisted living. The patient was initially treated for UTI and Infectious Disease deemed patient to have colonization and SIRS rather than sepsis; therefore, antibiotics were stopped. The patient was continued on IV fluids and improved to the point where he was at his baseline, but still unable to care for himself. After a long discussion with family and evaluation by geriatric psych as correction and assisted living, the patient did not qualify for any other placement and was placed to prison. DISCHARGE MEDICATIONS: Please see MRAD for discharge medications and he will be followed by prison physician. KRISTINA LEIGH MD DR: STEFANIA/meron JOB#: [id number] / [id number]
== END 2017-02-23 15:15 | DRG 871 ==
LOC: ER 12:00 → 6 SOUTH 14:05
PROVIDERS: ADMIT Family Medicine; ATTEND Family Medicine
PROC: 30233N1 Transfusion of Nonautologous Red Blood Cells into Peripheral Vein, Percutaneous Approach (ICD-10-PCS; principal; 2017-02-20)
DX: A41.9 Sepsis, unspecified organism (principal); N17.0 Acute kidney failure with tubular necrosis; N39.0 Urinary tract infection, site not specified; E11.22 Type 2 diabetes mellitus with diabetic chronic kidney disease; H40.9 Unspecified glaucoma; I12.9 Hypertensive chronic kidney disease with stage 1 through stage 4 chronic kidney disease, or unspecified chronic kidney disease; E86.0 Dehydration; N18.3 Chronic kidney disease, stage 3 (moderate); E78.5 Hyperlipidemia, unspecified; D63.1 Anemia in chronic kidney disease; R62.7 Adult failure to thrive; F32.9 Major depressive disorder, single episode, unspecified; Z93.3 Colostomy status; Z82.3 Family history of stroke; Z80.9 Family history of malignant neoplasm, unspecified; Z88.8 Allergy status to other drugs, medicaments and biological substances; Z85.46 Personal history of malignant neoplasm of prostate; Z85.048 Personal history of other malignant neoplasm of rectum, rectosigmoid junction, and anus
CPT/HCPCS: 36415; 71010; 80048; 80053; 81001; 82550; 82962; 83605; 83690; 83735; 83880; 84443; 84484; 85007; 85014; 85018; 85027; 85610; 85730; 86850; 86900; 86901; 86920; 87040; 87086; 87641; 93005; 96360; C1887; J0696; J1650; J1815; J1940; J1956; J7030; P9016; 97116; 97535; 99285-25